=== PATIENT | female | born 1935 | race Caucasian/White ===

== ENCOUNTER 2017-02-11 03:33 | Inpatient (IN) | payer MEDICARE ==
[2017-02-11] MEDS ORDERED: Albuterol/Ipratropium NEB.SOL* Albuterol 2.5 MG/Ipratropium 0.5 MG 3 ML INH ONE (03:49)
[2017-02-11] MEDS ORDERED: methylPREDNISolone 125 MG* 2 ML VIAL IV ONE (03:49)
[2017-02-11 04:23] LABS: ABS Basophils 0.1 10^3/ul (0-0.2); ABS Eosinophils 0 10^3/ul (0-0.6); ABS Lymphocytes 1.6 10^3/ul (1.0-4.8); ABS Monocytes 1.1 10^3/ul (0-0.8); ABS Neutrophils 15.1 10^3/ul (1.5-7.7); ABS Nucleated RBC 0 10^3/ul; Eosinophil % 0.1 % (0-6); Hematocrit 35 % (35-47); Hemoglobin 11.9 g/dl (12.0-16.0); Lymphocyte % 8.8 % (25-47); Mean Corpuscular HGB Conc 34 g/dl (31-36); Mean Corpuscular Hemoglobin 30 pg (27-31); Mean Corpuscular Volume 88 fL (80-97); Mean Platelet Volume 7 um3 (7.4-10.4); Nucleated Red Blood Cells % 0; Platelet Count 453 10^3/ul (150-450); Red Blood Count 3.99 10^6/ul (4.0-5.4); Red Cell Distribution Width 13 % (10.5-15); White Blood Count 17.9 10^3/ul (3.5-10.8)
[2017-02-11 04:32] LABS: INR 0.81 (0.77-1.02)
[2017-02-11 04:41] LABS: EGFR Non-African American 70.7 (>60)
[2017-02-11] MEDS ORDERED: Ondansetron INJ* 2 MG/ML VIAL IV ONE (05:02)
[2017-02-11] MEDS ORDERED: Ondansetron INJ* 2 MG/ML VIAL ONE (05:04)
[2017-02-11] MEDS ORDERED: Iohexol 300* (CONTRAST) 10 ML SDV IV ONE (05:48)
[2017-02-11 06:25] LABS: Urine Appearance Clear; Urine Blood Negative (Negative); Urine Color Straw; Urine Ketones Negative (Negative); Urine Protein Negative (Negative); Urine Specific Gravity 1.008 (1.010-1.030); Urine Urobilinogen Negative (Negative)
--- NOTE | 2017-02-11 06:52 | ED ---
Jayna Navarro Emily, scribed for Pankaj Andino on 02/11/17 at 0351 . Dizziness - HPI Summary HPI Summary: This patient is an 81 year old F BIBA to [facility] accompanied by with a chief complaint of dizziness that occurred earlier today. Pt was in the kitchen when she began to feel dizzy and collapsed. The patient rates the pain 0/10 in severity. Symptoms aggravated by nothing. Symptoms alleviated by nothing. Patient reports skin SOB, diaphoresis, abd pain, nausea, and chills. Patient denies CP. - History Of Current Complaint Chief Complaint: EDDizziness Stated Complaint: SYNCOPE Time Seen by Provider: 02/11/17 03:37 Hx Obtained From: Patient Onset/Duration: Suddenly Severity Initially: Mild Severity Currently: Mild Aggravating Factor(s): Nothing Alleviating Factor(s): Nothing Associated Signs And Symptoms: Positive: Other: - Positive skin diaphoresis, abd pain, nausea, and chills. Negative SOB and CP - Allergies/Home Medications Allergies/Adverse Reactions: Allergies Allergy/AdvReac Type Severity Reaction Status Date / Time Amoxicillin Allergy Unknown Verified 09/30/16 11:30 Reaction Details NSAIDs Allergy Unknown Verified 09/25/16 12:06 Reaction Details Penicillins Allergy Unknown Verified 09/25/16 12:06 Reaction Details PMH/Surg Hx/FS Hx/Imm Hx Previously Healthy: No Cardiovascular History: Reports: Other Cardiovascular Problems/Disorders - LEFT VENTRICAL HYP Respiratory History: Reports: Hx Chronic Obstructive Pulmonary Disease (COPD) Musculoskeletal History: Reports: Hx Osteoporosis - Surgical History Surgery Procedure, Year, and Place: BOTH HIPS REPLACED- FOREARM DONE Infectious Disease History: No Infectious Disease History: Denies: Traveled Outside the [place] in Last 30 Days - Family History Known Family History: Positive: Other - Prostate CA - Social History Occupation: Retired Lives: With Family Alcohol Use: None Hx Substance Use: No Hx Tobacco Use: No Review of Systems Positive: Chills, Skin Diaphoresis Negative: Chest Pain Positive: Shortness Of Breath Positive: Abdominal Pain, Nausea Neurological: Other - Positive dizziness All Other Systems Reviewed And Are Negative: Yes Physical Exam Triage Information Reviewed: Yes Vital Signs On Initial Exam: Initial Vitals Temp Pulse Resp BP Pulse Ox 98.6 F 92 18 135/70 95 02/11/17 03:36 02/11/17 03:36 02/11/17 03:36 02/11/17 03:36 02/11/17 03:36 Vital Signs Reviewed: Yes Appearance: Positive: Well-Appearing, No Pain Distress Skin: Positive: Warm, Skin Color Reflects Adequate Perfusion, Dry Head/Face: Positive: Normal Head/Face Inspection Eyes: Positive: EOMI, JT ENT: Positive: Normal ENT inspection Neck: Positive: Supple, Nontender Respiratory/Lung Sounds: Positive: Breath Sounds Present, Wheezes - Bilateral Cardiovascular: Positive: RRR, Pulses are Symmetrical in both Upper and Lower Extremities Abdomen Description: Positive: Soft, Other: - Tenderness in the epigastric region Bowel Sounds: Positive: Present Musculoskeletal: Positive: Normal, Strength/ROM Intact Neurological: Positive: Normal, Sensory/Motor Intact, Alert, Oriented to Person Place, Time Psychiatric: Positive: Affect/Mood Appropriate Diagnostics - Vital Signs Vital Signs Temp Pulse Resp BP Pulse Ox 02/11/17 03:36 98.6 F 92 18 135/70 95 - Laboratory Result Diagrams: 02/11/17 03:45 02/11/17 03:45 Lab Statement: Any lab studies that have been ordered have been reviewed, and results considered in the medical decision making process. - Radiology CXR Radiology Interpretation Completed By: ED Physician - CXR reveals no acute disease. - EKG 0446 Cardiac Rate: Tachycardia EKG Rhythm: Sinus Rhythm - 110 BPM EKG Comparison: No Significant Change Dizzy Course/Dx - Course Assessment/Plan: This patient is an 81 year old F BIBA to [facility] accompanied by with a chief complaint of dizziness that occurred earlier today. Pt was in the kitchen when she began to feel dizzy and collapsed. Patient reports SOB, skin diaphoresis, abd pain, nausea, and chills. Physical Exam Findings. Bilateral wheezes. Tenderness in epigastric. An EKG taken at 0446 reveals sinus tachycardia at 110 BPM. No acute changes. CXR reveals no acute disease. Bloodwork obtained. In the ED course the patient was given Duoneb, Omnipaque, Solu-MEDROL, and Zofran. Pt is signed-off to Dr. Rodriguez, pending dispo, awaiting follow up CT and ultrasound. - Diagnoses Provider Diagnoses: COPD exacerbation, Hypoxia, Abdominal pain Discharge - Discharge Plan Condition: Stable Disposition: OTHER Discharge Disposition Comment: Sign-off to Dr. Jennifer upon shift change Referrals: Anali Klein MD [Primary Care Provider] - The documentation as recorded by the Jayna benavides Emily accurately reflects the service I personally performed and the decisions made by me, Pankaj Andino.
[2017-02-11] MEDS ORDERED: Levofloxacin 500 MG IVPREMIX(* 500 MG/100 ML BAG IVPB ONE (07:04)
--- NOTE | 2017-02-11 08:11 | RAD ---
HISTORY: Shortness of breath COMPARISONS: February 04, 2017 VIEWS: 1: frontal portable view of the chest at 4:10 AM FINDINGS: LINES AND TUBES: None. CARDIOMEDIASTINAL SILHOUETTE: The cardiomediastinal silhouette is normal for portable technique. PLEURA: The costophrenic angles are sharp. No pleural abnormalities are noted. LUNG PARENCHYMA: There is hyperinflation. ABDOMEN: The upper abdomen is clear. There is no subphrenic gas. BONES AND SOFT TISSUES: Degenerative changes are noted along the shoulders. IMPRESSION: COPD. NO ACTIVE CARDIOPULMONARY DISEASE.
--- NOTE | 2017-02-11 08:22 | RAD ---
CLINICAL HISTORY: Abdominal pain COMPARISON: None TECHNIQUE: Multiple contiguous axial CT scans were obtained of the abdomen and pelvis after the administration of intravenous contrast. Coronal and sagittal multiplanar reformations are submitted for review. Oral contrast was administered. Delayed images were obtained through the abdomen and pelvis. FINDINGS: LUNG BASES: There is dependent atelectasis in the lung bases bilaterally. LIVER: There are multiple low-attenuation hepatic parenchymal lesions. The largest measure simple fluid in attenuation consistent with simple cysts, measuring up to 0.8 cm in size. The others are too small to definitively characterize. The liver is mildly enlarged measuring 19.5 cm in long axis. BILE DUCTS: There is mild intrahepatic biliary dilatation. There is ectasia of the common duct measuring 1 cm in caliber extending to the level of the ampulla GALLBLADDER: The gallbladder is normal, without pericholecystic inflammatory change. PANCREAS: The pancreas is normal, without mass or ductal dilatation. SPLEEN: Normal in size and appearance. UPPER GI TRACT: Evaluation of the gastrointestinal tract is limited by incomplete gastric distention. The upper GI tract is unremarkable. SMALL BOWEL AND MESENTERY: The small bowel is normal in contour, course, and caliber. There is no obstruction or dilatation. COLON: The colon is normal in contour, course, caliber. There is no pericolonic inflammatory change. ADRENALS: Normal bilaterally. KIDNEYS: The kidneys are normal in shape, size, contour, and axis. There is no hydronephrosis or nephrolithiasis. BLADDER: Evaluation of the distal ureters and bladder is limited by streak artifact from bilateral hip prostheses. PELVIC ORGANS: Evaluation the pelvic organs is limited by streak artifact from bilateral hip prostheses. Calcified uterine fibroids are identified. AORTA: There is calcific atherosclerotic disease of the abdominal aorta and its branches, without aneurysmal dilatation IVC: Unremarkable LYMPH NODES: There is no lymphadenopathy by size criteria. ABDOMINAL WALL: There is an inferior lumbar triangle hernia on the left containing sidewall of large bowel without obstruction. BONES AND SOFT TISSUES: There is a scoliotic curvature of the spine. Degenerative changes are noted. The patient is status post bilateral hip arthroplasty. OTHER: None IMPRESSION: 1. MILD BILIARY DILATATION. 2. ATHEROSCLEROSIS. 3. 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 4. EVALUATION OF THE PELVIC ORGANS IS LIMITED BY STREAK ARTIFACT FROM BILATERAL HIP PROSTHESES.
[2017-02-11] MEDS ORDERED: Levalbuterol HFA INHALER* 1 PUFF MDI INH PRN (12:25)
--- NOTE | 2017-02-11 12:56 | RAD ---
HISTORY: High d-dimer, shortness of breath COMPARISON: Chest x-ray dated February 11, 2017 TECHNIQUE: Pulmonary ventilation/perfusion scintigraphy was performed with dynamic cine images and multiple planar images. DOSE: Ventilation: Xenon-133 7.3 millicuries, administered at 12:10 PM on February 11, 2017 Perfusion: Technetium 99m microaggregated albumin 6.11 millicuries, administered at 12:10 PM February 11, 2017 FINDINGS: Ventilation: There is homogeneous ventilation. Perfusion: There are no perfusion defects. IMPRESSION: NO PULMONARY PERFUSION DEFECTS. NORMAL VQ SCAN. CPT II Codes: 1014B0I
[2017-02-11] MEDS ORDERED: Spiriva Inhaler DEVICE* 1 EACH DEVICE ONE (13:00)
[2017-02-11] MEDS ORDERED: Levofloxacin 500 MG IVPREMIX(* 500 MG/100 ML BAG IVPB SCH (14:00)
[2017-02-11] MEDS: Heparin VIAL(*) 5000 UNITS/ML VIAL (FIVE THOUSAND) SUBCUT SCH ×2 (14:15→20:40)
[2017-02-11] MEDS: Diltiazem CD CAP* 120 MG PO SCH (14:15)
[2017-02-11] MEDS: Losartan TAB* 25 MG PO SCH (14:15)
[2017-02-11] MEDS: Tiotropium CAP.INH* CAP.INH/18 MCG (USE ORDER SET !) INH SCH (15:56)
--- NOTE | 2017-02-11 16:28 | ECHO ---
Patient: SCOTT DAVIS [facility] Rec#: [id number] : 1935 Date: 02/11/2017 Age: 81y Height: 152.4 cm / 60.0 in Weight: 47.63 kg / 105.0 lbs Sex: F Admit Date#: 02/11/2017 Referring: Anali Klein MD Reading: Mc Carreon MD Pipe Organ Mechanic: Vivienne Saldana [facility] Transthoracic Echocardiogram Findings History: COPD,PAF,HTN. Technical Comments: The study is technically difficult. Left Ventricle: The left ventricular chamber size is normal. Global left ventricular wall motion and contractility are within normal limits. There is normal left ventricular systolic function. The estimated ejection fraction is 50-55%. Abnormal left ventricular diastolic filling is observed, consistent with impaired relaxation. The lack of left atrial enlargement suggests this finding may not be of clinical significance. Left Atrium: The left atrial chamber size is normal. Right Ventricle: Moderator Band present. The right ventricular cavity size is normal. The right ventricular global systolic function is normal. Right Atrium: The right atrial cavity size is normal. Aortic Valve: The aortic valve is trileaflet. The aortic valve leaflets are mildly thickened. There is aortic annular calcification. There is mild aortic regurgitation. There is mild aortic stenosis. The highest aortic valve velocity was obtained with the standard probe from the A5C view. Mitral Valve: The mitral valve leaflets are moderately thickened. There is mild to moderate mitral regurgitation. There is no evidence of mitral stenosis. Tricuspid Valve: The tricuspid valve leaflets are mildly thickened. There is mild to moderate tricuspid regurgitation. There is evidence of mild pulmonary hypertension. There is no tricuspid stenosis. Pulmonic Valve: The pulmonic valve appears normal. There is no evidence of pulmonic regurgitation. There is no pulmonic stenosis. Pericardium: The pericardium appears normal. Aorta: The ascending aorta is not well visualized. There is no dilatation of the aortic arch. There is no dilation of the aortic root. Pulmonary Artery: The main pulmonary artery appears normal. Venous: The inferior vena cava is dilated. There is an approximate 50% respiratory change in the inferior vena cava dimension. Conclusions The study is technically difficult. Off axis images are noted making interpretation suboptimal. There is normal left ventricular systolic function. Visually estimated LVEF is 50- 55 %. There is aortic annular calcification. There is mild aortic regurgitation. There is mild aortic stenosis. There is mild to moderate mitral regurgitation. There is mild to moderate tricuspid regurgitation. There is evidence of mild pulmonary hypertension. Compared to report of study from 05/04/2014 there is now mild aortic stenosis. Overall LV systolic function is slightly less (was reported as 55-60%). Measurements Name Value Normal Range RVIDd (AP) 2D 2.8 cm (0.9 - 2.6) RVDdMajor (2D) 3.1 cm (2.2 - 4.4) RAd ISD 4CH 3.9 cm (3.4 - 4.9) RA (A4C)W 3.3 cm (2.9 - 4.6) IVSd (2D) 0.7 cm (0.6 - 1) LVPWd (2D) 0.9 cm (0.6 - 1) LVIDd (2D) 4 cm (3.6 - 5.4) LVIDs (2D) 2.8 cm - LV FS (2D) 28 % (25 - 45) EF Teichholz (2D) 3 % - Aortic Annulus 1.7 cm (1.4 - 2.6) Ao root diameter (2D) 3.1 cm (2.1 - 3.5) Aortic arch 2.3 cm (1.8 - 3.4) Descending Ao 0.6 cm - LA dimension (AP) 2D 3.6 cm (2.3 - 3.8) LAd ISD 4CH 4.8 cm (2.9 - 5.3) LA ISD 4CH W 3.6 cm (2.5 - 4.5) Name Value Normal Range LA ESV SP 4CH (A/L) 34 ml - LA ESV SP 2CH (A/L) 66 ml - LA ESV BP (A/L) 48 ml - LA ESV BP (A/L) index 33.8 ml/m2 - LA ESV SP 4CH (MOD) 31 ml - LA ESV SP 2CH (MOD) 60 ml - Name Value Normal Range MV E-wave Vmax 0.7 m/sec - MV deceleration time 164 msec - MV A-wave Vmax 1.1 m/sec - MV E:A ratio 0.63 ratio - LV septal e' Vmax 0.06 m/sec - LV lateral e' Vmax 0.09 m/sec - LV E:e' septal ratio 11.67 ratio - LV E:e' lateral ratio 7.78 ratio - Name Value Normal Range AV Vmax 2.3 m/sec - AV VTI 41.3 cm - AV peak gradient 20.9 mmHg - AV mean gradient 10.89 mmHg - LVOT diameter 2.2 cm - LVOT Vmax 1.2 m/sec - LVOT VTI 21 cm - LVOT peak gradient 6.25 mmHg - LVOT mean gradient 2.68 mmHg - YANE (continuity Vmax) 2 cm2 - YANE (continuity VTI) 1.9 cm2 - AR PHT 294 msec - AR peak gradient 31.75 mmHg - Name Value Normal Range MR Vmax 4.53 m/sec - MR VTI 92.78 cm - Name Value Normal Range TR Vmax 2.7 m/sec - TR peak gradient 29 mmHg - RAP 8 mmHg - RVSP 37 mmHg - IVC diameter 2.1 cm - Name Value Normal Range PV Vmax 1.3 m/sec - PV peak gradient 6.29 mmHg -
[2017-02-11] MEDS: Omeprazole CAP* 20 MG PO SCH (17:01)
--- NOTE | 2017-02-11 19:04 | RAD ---
INDICATION: Pain and swelling. COMPARISON: None TECHNIQUE: Duplex interrogation of the Lowerextremity was performed. FINDINGS: Deep veins: The common femoral, great saphenous, profunda femoris, proximal, mid, and distal deep femoral, popliteal, posterior tibial, and peroneal veins are patent. There is normal compressibility, augmentation, and phasic flow. Superficial veins: There are no findings of superficial thrombophlebitis. Popliteal fossa:There is no evidence of a popliteal cyst. Soft tissues:There are no soft tissue abnormalities. IMPRESSION: Normal examination. No evidence of deep venous thrombosis
[2017-02-11] MEDS: amLODIPine TAB* 5 MG PO SCH (20:38)
[2017-02-11] MEDS: Famotidine TAB* 20 MG PO SCH (20:39)
[2017-02-12] MEDS: Heparin VIAL(*) 5000 UNITS/ML VIAL (FIVE THOUSAND) SUBCUT SCH ×3 (04:23→21:26)
[2017-02-12 06:27] LABS: ABS Basophils 0 10^3/ul (0-0.2); ABS Eosinophils 0 10^3/ul (0-0.6); ABS Lymphocytes 1.3 10^3/ul (1.0-4.8); ABS Neutrophils 20.4 10^3/ul (1.5-7.7); ABS Nucleated RBC 0 10^3/ul; Eosinophil % 0.1 % (0-6); Hematocrit 34 % (35-47); Hemoglobin 11.6 g/dl (12.0-16.0); Lymphocyte % 5.4 % (25-47); Mean Corpuscular HGB Conc 34 g/dl (31-36); Mean Corpuscular Hemoglobin 30 pg (27-31); Mean Corpuscular Volume 89 fL (80-97); Mean Platelet Volume 7 um3 (7.4-10.4); Nucleated Red Blood Cells % 0; Platelet Count 391 10^3/ul (150-450); Red Blood Count 3.81 10^6/ul (4.0-5.4); Red Cell Distribution Width 13 % (10.5-15); White Blood Count 23.8 10^3/ul (3.5-10.8)
[2017-02-12 06:48] LABS: EGFR Non-African American 82.8 (>60)
[2017-02-12] MEDS ORDERED: Levofloxacin 500 MG IVPREMIX(* 500 MG/100 ML BAG IVPB SCH (07:30)
[2017-02-12] MEDS ORDERED: Benzonatate CAP* 100 MG PO PRN (07:40)
[2017-02-12] MEDS: Omeprazole CAP* 20 MG PO SCH ×2 (07:41→16:08)
[2017-02-12] MEDS: Diltiazem CD CAP* 120 MG PO SCH (08:50)
[2017-02-12] MEDS: Losartan TAB* 25 MG PO SCH (08:50)
[2017-02-12] MEDS: predniSONE TAB* 20 MG PO SCH ×2 (08:50→21:22)
[2017-02-12] MEDS: Famotidine TAB* 20 MG PO SCH ×2 (08:50→21:22)
[2017-02-12] MEDS: Benzonatate CAP* 100 MG PO PRN ×2 (08:51→22:08)
[2017-02-12] MEDS: Loperamide CAP* 2 MG PO PRN (08:51)
[2017-02-12] MEDS: Tiotropium CAP.INH* CAP.INH/18 MCG (USE ORDER SET !) INH SCH (08:55)
[2017-02-12] MEDS: BREO ELLIPTA INH SCH (10:48)
[2017-02-12] MEDS ORDERED: Gentamicin ADULT per pharmacy 1 NOTE MISC FOLLOW UP PRN (11:14)
[2017-02-12] MEDS ORDERED: Aztreonam (*) 2 GM in NS 0.9% 50 ML* 50 ML IVPB SCH (12:00)
[2017-02-12] MEDS ORDERED: Levofloxacin 250 MG IVPREMX(*) 250 MG/50 ML BAG IVPB ONE (13:00)
[2017-02-12] MEDS ORDERED: Gentamicin IVPREMIX 100 MG/100 ML BAG IV ONE (14:00)
[2017-02-12] MEDS: AZTREONAM IVPB SCH ×2 (15:21→21:31)
[2017-02-12] MEDS: D5W IVPB SCH ×2 (15:21→21:31)
--- NOTE | 2017-02-12 16:29 | HP ---
HISTORY AND PHYSICAL: DATE OF ADMISSION: 02/11/17 HISTORY OF PRESENT ILLNESS: Josette Rangel is an 81-year-old woman admitted with near syncope, weakness, cough. The patient has had a cough recently. She has not been feeling well. She had seen the children's service worker who had switched her from Advair to Breo Ellipta. She had started a cough on 02/01/17. I spoke to her on Wednesday02/05/17. The previous Wednesday and Wednesday, she had felt fatigued. She had started prednisone on 02/03/17. She had quite a significant cough and guaifenesin with codeine was not helping. The Breo Ellipta had been started on 01/22/17. Her insurance was also asking her to change from Spiriva to Breo Incruse. This had not been started yet, however. I had suggested when I talked to her on 02/05/17 that she use her levalbuterol when she was coughing. I gave her more of the guaifenesin with codeine. She was on tapering doses of prednisone. Last night she went to bed around 10:15. She had indigestion. She woke up at 1:30 a.m. and had pain in her right shoulder which she has had in the past. She went to put a pad in the microwave which she was going to put on her shoulder, when she felt dizzy. She tried to make it to the chair, but did not make it and went down to the ground. She did not injure herself. She did not lose consciousness. She was quite sweaty. She was able to get herself back to bed. She was worried that she was having an ME because she had similar symptoms to what her had had when he had an ME. She felt chills, shivery, shaky. He took her vital signs. Her blood pressure was 160/80, pulse 93. When repeated, her blood pressure came down to 130. Her breathing was shallow and rapid. He called 911. She came to the emergency room. She was started on Levaquin. It was felt that she might have pneumonia, although this was not confirmed on the reading of the chest x-ray by the radiologist. She is being admitted at this time. PAST MEDICAL HISTORY: Otherwise significant for the following medical problems; 1. Asthma/COPD. 2. Gastroesophageal reflux disease. 3. Allergic rhinitis. 4. Essential hypertension. 5. Osteoporosis. 6. Status post knee replacement. 7. History of gastroparesis. 8. Osteoarthritis. 9. History of atrial fibrillation in 2003 and 2004. 10. Hyperlipidemia. 11. History of endometrial hyperplasia. 12. History of recurrent urinary tract infections. 13. History of uterine fibroids. PAST SURGICAL HISTORY: Prior surgeries include; 1. Bilateral knee replacements. 2. Lumpectomy for breast cancer in 1985. 3. Status post bilateral hip replacements. 4. Appendectomy. 5. History of removal of cervical polyp. CURRENT MEDICATIONS: 1. Codeine 10 mg-guaifenesin 100 mg/5 mL, 2 teaspoons every 4 hours as needed. 2. Spiriva 1 inhalation daily. 3. Xopenex 2 puffs every 4 hours as needed. 4. Lunesta 3 mg, 1 at h.s. p.r.n. sleep. 5. Irbesartan 150 mg daily. 6. QVAR 80 mg twice a day as needed. 7. Omeprazole 20 mg twice a day. 8. Amlodipine 2.5 mg daily. 9. Breo Ellipta 200 mcg-25 mcg/dose, 1 inhalation every day. 10. Vitamin C 1000 mg daily. 11. Ranitidine 150 mg twice a day. 12. PreserVision 2 capsules daily. 13. Magnesium 200 mg 2 every day. 14. Loratadine 10 mg every day. 15. Cyanocobalamin (vitamin B12) 100 mcg daily. 16. Multivitamin 1 every other day. 17. O-otopjps-jxfvqcn B12 1 every day. 18. Diltiazem 120 mg 1 every day. 19. [place] 350-400, 2 capsules every day. 20. Probiotic 1 capsule every day. 21. Cholecalciferol 2000 units (vitamin D3) 1 tablet every day. ALLERGIES: 1. ASPIRIN caused facial swelling. 2. ALTACE. 3. AMOXICILLIN caused rash. 4. ADVIL caused facial swelling. HABITS: Tobacco, none. She is a former smoker, she quit 50 years ago (1966). She had smoked for 15 years. EtOH, none. Caffeine, green tea 2 cups per day. FAMILY HISTORY: Positive for mother with COPD, at age 69. Father at 67 of prostate cancer. She had no siblings. She has 4 children. SOCIAL/PERSONAL HISTORY: The patient is . She lives in an apartment with her . 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 She has 2 adult children and grandchildren in the area. REVIEW OF SYSTEMS: General: She has been tired. Her appetite is not as good as usual. She has not been sleeping well. She attributes this to coughing and prednisone. She denied fever. HEENT: Her left ear has felt plugged. Blowing clear mucus out of the nose. Her throat has not been sore. Nodes: no adenopathy. Heme: Negative. Breasts: See above. Endocrine: Negative. Respiratory: See above. Her sputum is slightly thick, slightly yellow. She did notice a slight wheeze yesterday. She has been feeling more short of breath , but denies chest pain. Cardiovascular: See above. GI: She has been nauseated and has taken some Zofran for that. Bowel movements have been normal. : Negative. Musculoskeletal: See above. Neuro: See above. Psychiatric: Negative. PHYSICAL EXAMINATION VITAL SIGNS: Blood pressure 135/70, pulse 92, respirations 18, temperature 98.6 , O2 sat 95% on 3 L nasal cannula O2. The patient seen in the presence of her and daughter Flori. HEENT: Atraumatic, normocephalic. Full EOMs. TMs unremarkable. Mouth: Pharynx shows mild petechial lesion, right soft palate. Pharynx otherwise unremarkable. CHEST: Shows diminished breath sounds. No adventitial sounds. HEART: Normal S1, S2. No murmurs, gallops, or rubs. Pulses are full throughout. ABDOMEN: Soft and nontender. There are no masses or organomegaly. EXTREMITIES: Without cyanosis, clubbing, or erythema. NEUROLOGIC: She is alert, oriented. Cranial nerves are intact. Motor, no focal findings on exam. SKIN: Warm and dry. LABORATORY DATA: CBC: WBC 17.9, H and H 11.9/35, MCV 88, PLT 453,000. INR 0.81, PTT 24.8. D-dimer 533. ABGs; pH 7.48, pCO2 of 39, pO2 of 69. I believe this was on 3 L, not stated in the report. Chemistry: Sodium 128, potassium 3.6, chloride 92, CO2 of 28, BUN and creatinine 22/0.78, glucose 90, lactic acid 2, calcium 8.8. Rest of her comprehensive metabolic panel was within normal limits except for alkaline phosphatase 147, total protein 6.1. C- reactive protein is 5.2. Troponin 0.02. BNP 49. IMAGING: Chest x-ray shows no acute infiltrates. Abdomen and pelvis CT with IV contrast shows biliary dilatation, atherosclerosis, left inferior lumbar triangle hernia without obstruction. There was a cyst of the liver. EKG shows sinus tachycardia, LVH, mild ST and T-wave changes, nonspecific. IMPRESSION: The patient with near syncope in the setting of recent cough. She likely has exacerbation of chronic obstructive pulmonary disease, but pulmonary emboli need to be ruled out. Troponins will be trended to assess for possible CAD. She is to be a full code. This was discussed with the patient and her family. She is to have DVT prophylaxis with heparin. Continue her usual medications. I will continue her on Levaquin which was started in the ER for possible infection. I will order a procalcitonin and CRP and follow these. She will be placed on telemetry. I am going to get a V/Q lung scan in view of the fact that she had contrast already for her CT and it would be safer for her kidneys to do this. If it is indeterminate, I discussed with the radiologist of proceeding then with a CTA of the chest. [id number]/[facility] #: [id number] CHARLIE
[2017-02-12] MEDS: Lactobacillus Acidophilu (GG)* 1 CAP CAP PO SCH (21:22)
[2017-02-12] MEDS: amLODIPine TAB* 5 MG PO SCH (21:22)
[2017-02-12] MEDS: Multivitamins/Minera Areds(NF) 1 CAP CAP PO SCH (21:24)
[2017-02-13] MEDS: Gentamicin IVPREMIX 80 MG/80 ML BAG IV SCH ×2 (01:55→14:21)
[2017-02-13 05:51] LABS: Hematocrit 34 % (35-47); Hemoglobin 11.5 g/dl (12.0-16.0); Mean Corpuscular HGB Conc 34 g/dl (31-36); Mean Corpuscular Hemoglobin 30 pg (27-31); Mean Corpuscular Volume 89 fL (80-97); Mean Platelet Volume 7 um3 (7.4-10.4); Platelet Count 424 10^3/ul (150-450); Red Cell Distribution Width 13 % (10.5-15); White Blood Count 17.6 10^3/ul (3.5-10.8)
[2017-02-13 06:06] LABS: EGFR Non-African American 80.1 (>60)
[2017-02-13] MEDS: D5W IVPB SCH ×3 (06:06→21:27)
[2017-02-13] MEDS: AZTREONAM IVPB SCH ×3 (06:06→21:27)
[2017-02-13] MEDS: Heparin VIAL(*) 5000 UNITS/ML VIAL (FIVE THOUSAND) SUBCUT SCH ×3 (06:10→21:04)
[2017-02-13] MEDS: Omeprazole CAP* 20 MG PO SCH ×2 (06:15→16:02)
[2017-02-13] MEDS: Diltiazem CD CAP* 120 MG PO SCH (08:50)
[2017-02-13] MEDS: predniSONE TAB* 20 MG PO SCH ×2 (08:50→21:01)
[2017-02-13] MEDS: Losartan TAB* 25 MG PO SCH (08:50)
[2017-02-13] MEDS: Famotidine TAB* 20 MG PO SCH ×2 (08:50→21:02)
[2017-02-13] MEDS: Multivitamins/Minera Areds(NF) 1 CAP CAP PO SCH ×2 (08:51→19:49)
[2017-02-13] MEDS: Tiotropium CAP.INH* CAP.INH/18 MCG (USE ORDER SET !) INH SCH (10:52)
[2017-02-13] MEDS: BREO ELLIPTA INH SCH (10:52)
[2017-02-13] MEDS ORDERED: Gentamicin Trough Level 1 NOTE MISC FOLLOW UP SCH (13:30)
[2017-02-13] MEDS ORDERED: Gentamicin PEAK LEVEL* 1 NOTE MISC FOLLOW UP SCH (15:00)
[2017-02-13] MEDS: amLODIPine TAB* 5 MG PO SCH (21:01)
[2017-02-13] MEDS: Lactobacillus Acidophilu (GG)* 1 CAP CAP PO SCH (21:01)
[2017-02-14] MEDS: Benzonatate CAP* 100 MG PO PRN ×3 (00:49→20:53)
[2017-02-14] MEDS: AZTREONAM IVPB SCH ×3 (05:37→20:55)
[2017-02-14] MEDS: Heparin VIAL(*) 5000 UNITS/ML VIAL (FIVE THOUSAND) SUBCUT SCH ×3 (05:37→20:54)
[2017-02-14] MEDS: D5W IVPB SCH ×3 (05:37→20:55)
[2017-02-14 05:54] LABS: ABS Basophils 0 10^3/ul (0-0.2); ABS Eosinophils 0 10^3/ul (0-0.6); ABS Monocytes 0.7 10^3/ul (0-0.8); ABS Neutrophils 14.9 10^3/ul (1.5-7.7); ABS Nucleated RBC 0 10^3/ul; Eosinophil % 0.1 % (0-6); Hematocrit 36 % (35-47); Hemoglobin 11.8 g/dl (12.0-16.0); Lymphocyte % 5.8 % (25-47); Mean Corpuscular HGB Conc 33 g/dl (31-36); Mean Corpuscular Hemoglobin 30 pg (27-31); Mean Corpuscular Volume 91 fL (80-97); Mean Platelet Volume 7 um3 (7.4-10.4); Nucleated Red Blood Cells % 0; Platelet Count 456 10^3/ul (150-450); Red Blood Count 3.94 10^6/ul (4.0-5.4); Red Cell Distribution Width 14 % (10.5-15); White Blood Count 16.6 10^3/ul (3.5-10.8)
[2017-02-14] MEDS ORDERED: Gentamicin RANDOM Level 1 NOTE MISC FOLLOW UP ONE (06:00)
[2017-02-14] MEDS: Multivitamins/Minera Areds(NF) 1 CAP CAP PO SCH ×2 (07:21→21:03)
[2017-02-14] MEDS: Levofloxacin 750 MG IVPREMIX(* 750 MG/150 ML BAG IVPB SCH (07:44)
[2017-02-14] MEDS: Omeprazole CAP* 20 MG PO SCH ×2 (07:45→17:12)
[2017-02-14] MEDS: predniSONE TAB* 20 MG PO SCH ×2 (07:45→20:55)
[2017-02-14] MEDS: Famotidine TAB* 20 MG PO SCH ×2 (07:45→20:55)
[2017-02-14] MEDS: Diltiazem CD CAP* 120 MG PO SCH (07:45)
[2017-02-14] MEDS: Losartan TAB* 25 MG PO SCH (07:46)
[2017-02-14] MEDS: BREO ELLIPTA INH SCH (08:08)
[2017-02-14] MEDS: Tiotropium CAP.INH* CAP.INH/18 MCG (USE ORDER SET !) INH SCH (10:45)
--- NOTE | 2017-02-14 12:41 | RAD ---
Indication: Respiratory infection. 2 views of the chest demonstrate no mediastinal shift. Heart is of normal size and configuration. Lung milan are clear. IMPRESSION: No active cardiopulmonary disease is noted.
[2017-02-14] MEDS: Gentamicin IVPREMIX 80 MG/80 ML BAG IV SCH (13:33)
[2017-02-14] MEDS: amLODIPine TAB* 5 MG PO SCH (20:54)
[2017-02-14] MEDS: Lactobacillus Acidophilu (GG)* 1 CAP CAP PO SCH (20:54)
[2017-02-15] MEDS: AZTREONAM IVPB SCH ×3 (05:03→21:29)
[2017-02-15] MEDS: D5W IVPB SCH ×3 (05:03→21:29)
[2017-02-15] MEDS: Heparin VIAL(*) 5000 UNITS/ML VIAL (FIVE THOUSAND) SUBCUT SCH ×3 (05:03→21:31)
[2017-02-15] MEDS: Losartan TAB* 25 MG PO SCH (07:54)
[2017-02-15] MEDS: Omeprazole CAP* 20 MG PO SCH ×2 (07:54→16:24)
[2017-02-15] MEDS: Famotidine TAB* 20 MG PO SCH ×2 (07:55→21:30)
[2017-02-15] MEDS: Tiotropium CAP.INH* CAP.INH/18 MCG (USE ORDER SET !) INH SCH (07:55)
[2017-02-15] MEDS: BREO ELLIPTA INH SCH (07:55)
[2017-02-15] MEDS: Multivitamins/Minera Areds(NF) 1 CAP CAP PO SCH ×2 (07:55→21:39)
[2017-02-15] MEDS: Benzonatate CAP* 100 MG PO PRN ×3 (07:55→22:09)
[2017-02-15] MEDS: predniSONE TAB* 20 MG PO SCH (07:55)
[2017-02-15] MEDS: Diltiazem CD CAP* 120 MG PO SCH (07:56)
--- NOTE | 2017-02-15 10:17 | PN ---
Subjective - Subjective Reason for Note: Progress Note History: She was having an independent shower when I first came to see her, when I returned 10 mins later, she was able to walk independently from the bathroom to her chair. She was not using supplementary O2. She is feeling much better. Active Problems: Active Problems Acute exacerbation of COPD with asthma (Acute) J44.1, J45.901 Pneumonia (Acute) J18.9 Essential (primary) hypertension (Chronic) I10 GERD (gastroesophageal reflux disease) (Chronic) K21.9 History of atrial fibrillation (Chronic) Z86.79 History of diabetic gastroparesis (Chronic) Z86.39 Hyperlipidemia (Chronic) E78.5 Current Medications: Current Medications Amlodipine Besylate (Norvasc Tab*) 2.5 mg PO BEDTIME [facility] Last Admin: 02/14/17 20:54 Dose: 2.5 mg Benzonatate (Tessalon Cap*) 200 mg PO Q8H PRN PRN Reason: COUGHING Last Admin: 02/15/17 07:55 Dose: 200 mg Diltiazem HCl (Cardizem Cd Cap*) 120 mg PO DAILY [facility] Last Admin: 02/15/17 07:56 Dose: 120 mg Famotidine (Pepcid Tab*) 20 mg PO BID [facility] Last Admin: 02/15/17 07:55 Dose: 20 mg Heparin Sodium (Porcine) (Heparin Vial(*)) 5,000 units SUBCUT Q8H [facility] Last Admin: 02/15/17 05:03 Dose: 5,000 units Levofloxacin/Dextrose (Levaquin 750 Mg Ivpremix(*)) 750 mg in 150 mls @ 100 mls /hr IVPB Q48H [facility] Last Admin: 02/14/17 07:44 Dose: 100 mls/hr Aztreonam 2 gm/ Dextrose 50 mls @ 200 mls/hr IVPB Q8H [facility] Last Admin: 02/15/17 05:03 Dose: 200 mls/hr Gentamicin Sulfate/Sodium Chloride (Gentamicin Ivpremix) 80 mg in 80 mls @ 160 mls/hr IV Q24H [facility] Last Admin: 02/14/17 13:33 Dose: 160 mls/hr Lactobacillus Rhamnosus (Culturelle*) 1 cap PO BEDTIME [facility] Last Admin: 02/14/17 20:54 Dose: 1 cap Levalbuterol HCl (Xopenex Hfa Inhaler*) 2 puff INH Q4H PRN PRN Reason: SOB/WHEEZING Last Admin: 02/11/17 17:01 Dose: 2 puff Loperamide HCl (Imodium Cap*) 2 mg PO QID PRN PRN Reason: DIARRHEA Last Admin: 02/12/17 08:51 Dose: 2 mg Losartan Potassium (Cozaar Tab*) 50 mg PO DAILY [facility] Last Admin: 02/15/17 07:54 Dose: 50 mg Multivitamins/Minerals (Preservision Areds(Multivitamins/Mineral)(Nf)) 1 cap PO BID [facility] Last Admin: 02/15/17 07:55 Dose: Not Given Pto Non Formulary Med (Breo Ellipta 200/) 1 dose INH DAILY [facility] Last Admin: 02/15/17 07:55 Dose: 1 dose Omeprazole (Prilosec Cap*) 20 mg PO BID AC [facility] Last Admin: 02/15/17 07:54 Dose: 20 mg Pharmacy Consult (Gentamicin Adult Per Pharmacy) 1 note FOLLOW UP . PRN PRN Reason: PER PROTOCOL Pharmacy Profile Note (Gentamicin Trough Level) 1 note FOLLOW UP 1130 ONE Stop: 02/16/17 11:31 Prednisone (Deltasone Tab*) 20 mg PO BID [facility] Last Admin: 02/15/17 07:55 Dose: 20 mg Tiotropium Howard (Spiriva Cap.Inh*) 1 cap INH DAILY [facility] Last Admin: 02/15/17 07:55 Dose: 1 cap - Review of Systems Constitutional Symptoms: Yes: Fatigue, No: Fever Pulmonary: Positive: Cough, Sputum, COPD, Asthma Negative: Hemoptysis, Wheezing, Respiratory Distress, Shortness of Breath, Exercise Intolerance, Home Oxygen Cardiology: Positive: Shortness of Breath Negative: Chest Pain, Palpitations, Swelling of Ankles Gastroenterology: Negative: Abdominal Pain, Nausea, Vomiting Genital - Urinary: Positive: Normal Home Medications: Home Medications Medication Instructions Recorded Confirmed Type Diltiazem CD CAP* [Cardizem CD 120 mg PO DAILY 05/18/16 02/11/17 History CAP*] Irbesartan (NF) [Avapro (NF)] 150 mg PO DAILY 05/18/16 02/11/17 History Levalbuterol HFA INHALER* [Xopenex 2 puff INH QID PRN 05/18/16 02/11/17 History Hfa Inhaler*] Omeprazole CAP* [Prilosec CAP* 20 20 mg PO BID 05/18/16 02/11/17 History MG] Ranitidine TAB (NF) [Zantac TAB 150 mg PO BID 05/18/16 02/11/17 History (NF)] Tiotropium CAP.INH* [Spiriva 1 cap.inh INH DAILY 05/18/16 02/11/17 History CAP.INH*] amLODIPine TAB* [Norvasc TAB*] 2.5 mg PO QPM 05/18/16 02/11/17 History Cyanocobalamin TAB* [Vitamin B12 1,000 mcg PO DAILY 09/30/16 02/11/17 History TAB*] Cholecalciferol TAB* [Vitamin D 2,000 units PO DAILY 02/11/17 02/11/17 History TAB*] Fluticasone/Vilanterol MDI(NF) 1 puff INH DAILY 02/11/17 02/11/17 History [Breo Ellipta MDI (NF)] Magnesium Gluconate 400 mg PO DAILY 02/11/17 02/11/17 History Multiple Vitamins W/ Minerals 1 cap PO DAILY 02/11/17 02/11/17 History [Preservision Areds 2 + Mu] predniSONE TAB* [Deltasone TAB*] 5 mg PO DAILY 02/11/17 02/11/17 History Preservision Areds 2 + Mu 1 tab PO BID 02/12/17 02/12/17 History Allergies: Allergies Allergy/AdvReac Type Severity Reaction Status Date / Time Amoxicillin Allergy Unknown Verified 09/30/16 11:30 Reaction Details NSAIDs Allergy Unknown Verified 09/25/16 12:06 Reaction Details Penicillins Allergy Unknown Verified 09/25/16 12:06 Reaction Details Ramipril [From Altace] Allergy Unknown Verified 02/11/17 13:31 Reaction Details Objective - Vital Signs Vital Signs: Vital Signs 02/14/17 02/14/17 02/14/17 15:30 15:31 19:17 Temperature 97.4 F 97.2 F Pulse Rate 84 89 Respiratory 16 18 Rate Blood Pressure 146/71 143/68 (mmHg) O2 Sat by Pulse 97 96 97 Oximetry 02/14/17 02/14/17 02/15/17 20:31 23:36 03:35 Temperature 98.1 F 97.8 F Pulse Rate 72 68 Respiratory 18 16 16 Rate Blood Pressure 163/73 142/59 (mmHg) O2 Sat by Pulse 98 97 Oximetry - Intake and Output Intake and Output: Intake & Output 02/12/17 02/13/17 02/14/17 02/15/17 11:59 11:59 11:59 11:59 Intake Total 650 2201 1976 74 Output Total 0 0 Balance 650 2201 1976 74 Weight 104 lb Intake: IV Fluids 45 147 58 ABX - AZTREONAM 30 147 58 ABX - GENTAMYCIN 15 IVPB 366 50 286 ABX - AZTREONAM 158 50 55 ABX - GENTAMYCIN 58 76 ABX - LEVAQUIN 150 155 Oral 650 1790 1780 400 Output: Urine 0 0 Other: Estimated Void Medium Medium Large Large # Bowel Movements 1 0 0 Estimated Stool Amount Small # Voids 3 2 1 1 ADLs: Meal Record Start: 02/11/17 12: 03 Freq: DAILY@0900,1400,1800 Status: Active Protocol: Created 02/11/17 12:03 System (Rec: 02/11/17 12:03 System TELE-C07) Document 02/11/17 14:00 [id number] (Rec: 02/11/17 15:30 [id number] TELE-C01) Document 02/11/17 17:59 [id number] (Rec: 02/11/17 18:00 [id number] TELE-C05) Document 02/12/17 09:00 [id number] (Rec: 02/12/17 14:48 [id number] TELE-C05) Document 02/12/17 14:00 [id number] (Rec: 02/12/17 14:50 [id number] TELE-C05) Document 02/12/17 18:00 [id number] (Rec: 02/12/17 19:15 [id number] TELE-C01) Document 02/13/17 09:00 [id number] (Rec: 02/13/17 14:50 [id number] TELE-C03) Document 02/13/17 14:00 [id number] (Rec: 02/13/17 14:51 [id number] TELE-C03) Document 02/14/17 18:00 [id number] (Rec: 02/14/17 18:33 [id number] MED-C09) Intake and Output Start: 02/11/17 03: 42 Freq: Status: Active Protocol: Created 02/11/17 03:42 System (Rec: 02/11/17 03:42 System ED-C31) Intake and Output Start: 02/11/17 12: 03 Freq: DAILY@0600,1400,2200 Status: Active Protocol: Created 02/11/17 12:03 System (Rec: 02/11/17 12:03 System TELE-C07) Document 02/11/17 14:00 [id number] (Rec: 02/11/17 15:30 [id number] TELE-C01) Document 02/11/17 22:00 [id number] (Rec: 02/11/17 22:47 [id number] TELE-C01) Document 02/12/17 00:00 [id number] (Rec: 02/12/17 02:31 [id number] TELE-M04) Document 02/12/17 06:00 [id number] (Rec: 02/12/17 07:40 [id number] TELE-C11) Document 02/12/17 14:00 [id number] (Rec: 02/12/17 14:50 [id number] TELE-C05) Document 02/12/17 18:51 [id number] (Rec: 02/12/17 18:51 [id number] TELE-M01) Document 02/12/17 22:00 [id number] (Rec: 02/12/17 22:12 [id number] TELE-C01) Document 02/13/17 05:21 [id number] (Rec: 02/13/17 05:21 [id number] TELE-C35) Document 02/13/17 06:00 [id number] (Rec: 02/13/17 06:47 [id number] TELE-C03) Document 02/13/17 14:00 [id number] (Rec: 02/13/17 14:51 [id number] TELE-C03) Document 02/13/17 20:09 [id number] (Rec: 02/13/17 20:09 [id number] MED-C11) Document 02/14/17 01:49 [id number] (Rec: 02/14/17 01:49 [id number] MED-C42) Document 02/14/17 04:48 [id number] (Rec: 02/14/17 04:49 [id number] MED-C42) Document 02/15/17 04:09 [id number] (Rec: 02/15/17 04:09 [id number] MED-C01) - Physical Exam General Physical Exam Comment: She has copious clear sputum. She is in no distresss and is able to perform her ADLs General: No Cyanosis, No Anemia, No Jaundice, No Clubbing Skin: Normal: Rash Lungs and Chest: Yes: Chest Expansion Full, Chest Expansion Symetrica, Vessicular Breath Sounds. No: Percussion Note Resonant - hyper-resonant, Crackles, Wheezes, Respiratory Distress, Use of Accessory Muscles Heart Rate and Rhythm: Regular JVP: Not Elevated Additional Cardiovascular: Yes: Normal Heart Sounds. No: Heart Murmur, Pedal Edema Abdominal Exam: Yes: Soft, Bowel Sounds Present. No: Distention, Abdominal Tenderness Assessment - Problem List Assessment: Patient Problems Acute exacerbation of COPD with asthma (Acute) Pneumonia (Acute) Essential (primary) hypertension (Chronic) GERD (gastroesophageal reflux disease) (Chronic) History of atrial fibrillation (Chronic) History of diabetic gastroparesis (Chronic) Hyperlipidemia (Chronic) Plan: She is recovering from a likely occult pneumonia ontop of an exacerbation of COPD. Her CXR yesterday was clear. Her WBC remains high because of the prednisone - I will taper today. I think she should complete her antibacterials in the hospital as she is at high risk of re-admission. I answered her questions.
[2017-02-15] MEDS: Loperamide CAP* 2 MG PO PRN (11:38)
[2017-02-15] MEDS: Gentamicin IVPREMIX 80 MG/80 ML BAG IV SCH (11:38)
[2017-02-15] MEDS: amLODIPine TAB* 5 MG PO SCH (21:30)
[2017-02-15] MEDS: Lactobacillus Acidophilu (GG)* 1 CAP CAP PO SCH (21:30)
[2017-02-16] MEDS: D5W IVPB SCH (04:35)
[2017-02-16] MEDS: AZTREONAM IVPB SCH (04:35)
[2017-02-16] MEDS: Heparin VIAL(*) 5000 UNITS/ML VIAL (FIVE THOUSAND) SUBCUT SCH (04:56)
[2017-02-16] MEDS: Levofloxacin 750 MG IVPREMIX(* 750 MG/150 ML BAG IVPB SCH (07:21)
[2017-02-16 07:24] LABS: ABS Basophils 0.1 10^3/ul (0-0.2); ABS Eosinophils 0.1 10^3/ul (0-0.6); ABS Lymphocytes 2.2 10^3/ul (1.0-4.8); ABS Nucleated RBC 0 10^3/ul; Eosinophil % 0.4 % (0-6); Hematocrit 37 % (35-47); Hemoglobin 12.5 g/dl (12.0-16.0); Mean Corpuscular HGB Conc 34 g/dl (31-36); Mean Corpuscular Hemoglobin 30 pg (27-31); Mean Corpuscular Volume 90 fL (80-97); Mean Platelet Volume 6 um3 (7.4-10.4); Nucleated Red Blood Cells % 0; Platelet Count 438 10^3/ul (150-450); Red Blood Count 4.14 10^6/ul (4.0-5.4); Red Cell Distribution Width 13 % (10.5-15); White Blood Count 16.6 10^3/ul (3.5-10.8)
[2017-02-16 07:29] LABS: ABS Monocytes 2.4 10^3/ul (0-0.8); ABS Neutrophils 11.9 10^3/ul (1.5-7.7)
[2017-02-16] MEDS: BREO ELLIPTA INH SCH (08:07)
[2017-02-16] MEDS: Losartan TAB* 25 MG PO SCH (08:22)
[2017-02-16] MEDS: Famotidine TAB* 20 MG PO SCH (08:22)
[2017-02-16] MEDS: Diltiazem CD CAP* 120 MG PO SCH (08:23)
[2017-02-16] MEDS: Omeprazole CAP* 20 MG PO SCH (08:23)
[2017-02-16] MEDS: Benzonatate CAP* 100 MG PO PRN (08:29)
[2017-02-16] MEDS: Multivitamins/Minera Areds(NF) 1 CAP CAP PO SCH (08:30)
[2017-02-16] MEDS ORDERED: predniSONE TAB* 20 MG PO SCH (09:00)
[2017-02-16 09:17] LABS: EGFR Non-African American 82.8 (>60)
[2017-02-16 11:26] VITALS: BP 143/71
[2017-02-16] MEDS ORDERED: Gentamicin Trough Level 1 NOTE MISC FOLLOW UP ONE (11:30)
[2017-02-16] MEDS: Gentamicin IVPREMIX 80 MG/80 ML BAG IV SCH (12:51)
[2017-02-16] MEDS: Tiotropium CAP.INH* CAP.INH/18 MCG (USE ORDER SET !) INH SCH (12:51)
[2017-02-16] MEDS ORDERED: D5W IVPB ONE (13:30)
[2017-02-16] MEDS ORDERED: AZTREONAM IVPB ONE (13:30)
--- NOTE | 2017-02-16 21:26 | DS ---
DISCHARGE SUMMARY: DATE OF ADMISSION: 02/11/17 DATE OF DISCHARGE: 02/16/17 DISCHARGE DIAGNOSES: 1. Respiratory infection, probable pneumonia, bacterial. 2. History of chronic obstructive pulmonary disease and asthma. 3. History of gastroparesis. 4. History of hypertension. 5. History of intermittent steroid therapy. 6. History of osteoporosis. 7. History of breast cancer. 8. History of osteoarthritis, status post bilateral hip and knee replacements. 9. Allergic rhinitis. 10. History of urinary tract infections. 11. History of uterine fibroids. 12. Drug allergies to ASPIRIN, DARIUS INHIBITORS, PENICILLIN, NSAIDs. 13. Mild aortic stenosis and regurgitation. HISTORY: Josette Rangel is an 81-year-old woman admitted for near syncope, weakness, and cough. Please see the dictated admission note for details of the present illness, past medical history, family history, social and personal history, review of systems, and physical examination. LABORATORY DATA: CBC on admission: WBC 17.9, H and H of 11.9/35, MCV 88, PLT 453K. White count subsequently went up to 23.8 on 02/12/17, went down to 16.6 on 02/14/17 and 02/16/17. H and H on 02/16/17 was 12.5/37. INR, PTT were essentially normal. D-dimer was mildly elevated at 533. Blood gases on , which I believe were on 3 L nasal cannula O2, but not noted on the report, pH 7.48, pCO2 39, pO2 69. Chemistries: Sodium 128, potassium 3.6, chloride 92 , CO2 28, BUN and creatinine 22/0.78. Rest of the comprehensive metabolic panel was abnormal for alkaline phosphatase, mildly elevated at 147. Total protein slightly low at 6.1. Lactic acid was normal at 2. CRP started at 5.20, went up to 14.06 on 02/11/17, was 160.82 on 02/12/17, and was down to 28.58 on 02/16/17. Troponin Is were normal x3 on 02/11/17 and 02/12/17. Procalcitonin started at less than 0.1, went up to 0.2 on 02/11/17, then 0.7 which was above normal on 02/12/17 and was down to 0.2 by 02/14/17. Phosphorus was normal at 3.3, magnesium was normal at 2.2. Urinalysis normal. Gentamicin trough was 1 on 02/13/17 and random less than 0.4 on 02/14/17. Sputum and blood cultures were no growth. Urine for Legionella urinary antigen and Streptococcus pneumoniae antigens were negative. Sputum Gram stain on 02/13/17 showed 4+ neutrophils, 3+ epithelial cells, mixed tracie and grew yeast, and normal tracie on culture. IMAGING: On 02/11/17, portable chest x-ray showed COPD with no acute cardiopulmonary disease. Abdominal and pelvis CT on 02/11/17 showed mild biliary dilatation, atherosclerosis, left inferior lumbar triangle hernia without obstruction. There were calcified uterine fibroids. There were cysts in the liver. Spine was noted to be scoliotic. She was status post bilateral hip arthroplasty. V/Q lung scan showed no pulmonary perfusion defects. Venous Doppler study of the lower extremities were negative for DVT. Chest x-ray on showed no acute disease, no clear pneumonia. CARDIAC TESTING: EKG on 02/11/17 showed sinus tachycardia, LVH. Transthoracic echocardiogram on 02/11/17 showed normal ejection fraction, aortic annular calcification with mild aortic stenosis and regurgitation, [id number] mitral regurgitation, [id number] tricuspid regurgitation. HOSPITAL COURSE: The patient was initially admitted and started on IV Levaquin and steroids for COPD exacerbation. She was monitored on telemetry because of the episode of near- syncope. Troponins were trended and myocardial infarction ruled out. She was full code. She received DVT prophylaxis with subcutaneous heparin. She continued on her usual medications. Procalcitonin spiked and she did not feel better the day following admission, so aztreonam and gentamicin were ordered to cover for pulmonary Pseudomonas in the setting of recent treatment with steroids for COPD. It was felt that she could have an occult pneumonia that was not clearly viewed on chest x-ray and that she should be covered for this in view of the markedly elevated CRP and rising procalcitonin. With this triple antibiotic therapy, she started to improve. Her CRP and procalcitonin came down as her cough improved and she began to feel stronger. She continued to cough up light yellow sputum. On the morning of 02/16/17, she was exhausted because she had not slept well due to a noisy roommate. She felt weak and urinated as she was getting out of bed and getting things out of the closet, to bring into the bathroom, slipped but did not injure herself. She felt well enough to be discharged to home. PHYSICAL EXAMINATION: At the time of discharge, her vital signs were blood pressure 146/67, pulse 90, respirations 18, temperature afebrile, O2 saturation 98% on room air. Initially, she needed oxygen, but does not needed any longer. Chest is clear with diminished breath sounds. Heart is regular. Extremities showed no calf tenderness. No edema. It was felt that she had a respiratory infection and probably a small pneumonia , not seen on chest x-ray and she has improved. She received enough antibiotics and steroids. Her blood pressure is up slightly likely due to steroids as is her pulse. She is being discharged. She feels up to going home. She was seen in the presence of her . At the time of discharge, her diet is usual. Her activity as tolerated. MEDICATIONS: 1. Spiriva 1 inhalation once a day. 2. Breo Ellipta 225 once a day. 3. Xopenex 2 puffs every 4 hours as needed for cough or shortness of breath. 4. Diltiazem CD 120 mg daily. 5. Amlodipine 2.5 mg daily. 6. Omeprazole 20 mg twice a day. 7. Vitamin D3 200 units once a day. 8. Probiotic once a day. 9. Ranitidine 150 mg twice a day. 10. Irbesartan 150 mg once a day. 11. Tessalon Perles 100 mg 1 to 2 three times a day as needed for cough. 12. She will continue to take other supplements as before. FOLLOWUP: She will follow up with me in 1 week. [id number]/[facility] #: [id number] CHARLIE
[2017-02-16] MEDS ORDERED: Aztreonam (*) 2 GM in NS 0.9% 100 ML* 100 ML IVPB SCH (21:30)
== END 2017-02-16 12:45 | disposition home or self-care (01) | DRG 194 ==
LOC: ED 03:33 → MEDTELE 11:28 → MED 02-13 19:22
PROVIDERS: ADMIT Internal Medicine Geriatric Medicine; ATTEND Internal Medicine Geriatric Medicine
DX: J15.9 Unspecified bacterial pneumonia (principal); J44.0 Chronic obstructive pulmonary disease with (acute) lower respiratory infection; I48.91 Unspecified atrial fibrillation; K31.84 Gastroparesis; E11.43 Type 2 diabetes mellitus with diabetic autonomic (poly)neuropathy; I08.3 Combined rheumatic disorders of mitral, aortic and tricuspid valves; J44.1 Chronic obstructive pulmonary disease with (acute) exacerbation; K70.9 Alcoholic liver disease, unspecified; M81.0 Age-related osteoporosis without current pathological fracture; Z96.643 Presence of artificial hip joint, bilateral; K21.9 Gastro-esophageal reflux disease without esophagitis; E78.5 Hyperlipidemia, unspecified; Z96.653 Presence of artificial knee joint, bilateral; M19.90 Unspecified osteoarthritis, unspecified site; I10 Essential (primary) hypertension; K76.89 Other specified diseases of liver; I70.90 Unspecified atherosclerosis; K45.8 Other specified abdominal hernia without obstruction or gangrene; Z88.8 Allergy status to other drugs, medicaments and biological substances; Z85.3 Personal history of malignant neoplasm of breast; Z80.42 Family history of malignant neoplasm of prostate; Z87.440 Personal history of urinary (tract) infections; Z83.6 Family history of other diseases of the respiratory system; Z87.891 Personal history of nicotine dependence; Z88.0 Allergy status to penicillin
CPT/HCPCS: 36415; 36600; 71010; 71020; 74177; 78582; 80048; 80053; 80170; 81003; 82803; 83605; 83735; 83880; 84100; 84145; 84484; 85025; 85027; 85379; 85610; 85730; 86140; 86141; 87040; 87070; 87205; 87899; 93005; 93306; 93970; 94640; A9270-GY; A9540; A9558; J1580; J1644; J1956; J2405; J2930; J7512; Q9967

== ENCOUNTER 2017-03-03 11:55 | Day surgery (SDC) | payer MEDICARE ==
[~2017-03-03 11:55] MED LIST: Buffered Lidocaine 0.9% SYRIN* 5 ML/SYR SYRINGE INTRADERM ONE; Sodium Citrate/Citric Acid* 15 ML UDC PO ONE
[2017-03-03] MEDS ORDERED: Sodium Citrate/Citric Acid* 15 ML UDC ONE (11:59)
[2017-03-03] MEDS ORDERED: Buffered Lidocaine 0.9% SYRIN* 5 ML/SYR SYRINGE ONE (11:59)
[2017-03-03] MEDS ORDERED: Lidocaine 2% PF* 10 ML AMP ONE (13:05)
[2017-03-03] MEDS ORDERED: Lidocaine 1% INJ* 10 MG/ML 30 ML SDV ONE (13:05)
[2017-03-03] MEDS ORDERED: Lidocaine 2% JELLY* 6 ML JELLY TOPICAL ONE ×2 (13:06→13:17)
[2017-03-03] MEDS ORDERED: fentaNYL* 50 MCG/ML 2 ML VIAL (100 MCG VIAL) ONE (13:21)
[2017-03-03] MEDS ORDERED: Midazolam* 1 MG/ML 2 ML VIAL (2 MG) ONE (13:25)
[2017-03-03] MEDS ORDERED: Lidocaine 2% PF * 5 ML VIAL ONE (13:26)
[2017-03-03] MEDS ORDERED: Propofol* 10 MG/ML 20 ML BTL IV PUSH ONE (13:26)
[2017-03-03 16:08] VITALS: BP 133/69
--- NOTE | 2017-03-04 11:48 | PRO ---
BRONCHOSCOPY REPORT: DATE OF PROCEDURE: 03/03/17 - OUTPATIENT PROCEDURE PERFORMED BY: Padma Rodriguez MD ANESTHESIOLOGIST: Kevin Duran DO ANESTHESIA: Conscious sedation, local anesthesia. INDICATION FOR PROCEDURE: Persistent pneumonia in the left lower lobe. PROCEDURE PERFORMED: Bronchoscopy with bronchoalveolar lavage from left side and endobronchial biopsies from left lower lobe. DESCRIPTION OF PROCEDURE: Informed consent was obtained from the patient prior to the procedure after all the risks and benefits were thoroughly explained. The patient was recently seen for evaluation of persistent pneumonia symptoms with cough and sputum production. The patient had CT scan of the chest, which also showed dense consolidation in left lower lobe. Appropriate time-out was performed and agreed on by attending staff. A flexible Olympus bronchoscope was inserted after adequate local anesthesia was instilled through the left naris and through the vocal cords. Bronchoscope was inserted through the left naris, was stationed above the level of the vocal cords. No lesions were noted. The vocal cords were moving normally to inspiration. Bronchoscope was then inserted after 1% lidocaine 2 cc was instilled on the vocal cord and was advanced into the trachea. The patient noted to have broncholiths arising from the anterior wall. The patient did not have any lesions in the trachea. Bronchoscope was inserted into the right bronchial tree. Thin secretions were noted. Secretions were suctioned out. Bronchoscope was then advanced into the left bronchial tree. There were some mucosal irregularities in the left main stem bronchus and in the left lower lobe bronchus area. No obvious endobronchial lesions were noted. There were thick secretions and mucus plugs, which were suctioned out. Specimen was sent to the lab for microbiological testing. The specimen was also sent for cytological examination. Endobronchial biopsies were also obtained from the irregular mucosal lesion. The patient tolerated the procedure well. The patient was seen in Recovery in optimal condition. [id number]/[facility] #: [id number] [facility]
== END 2017-03-03 14:15 | disposition home or self-care (01) ==
LOC: OR 11:55
PROVIDERS: ATTEND Internal Medicine
DX: J18.8 Other pneumonia, unspecified organism (principal); J44.9 Chronic obstructive pulmonary disease, unspecified; I10 Essential (primary) hypertension; Z87.891 Personal history of nicotine dependence; Z85.3 Personal history of malignant neoplasm of breast; K21.9 Gastro-esophageal reflux disease without esophagitis; Z79.899 Other long term (current) drug therapy; J98.4 Other disorders of lung; R91.8 Other nonspecific abnormal finding of lung field
CPT/HCPCS: 87070; 87077; 87102; 87116; 87205; 87206; 88112; 88305; A9270-GY; J2001; J2250; J2704; J3010

== ENCOUNTER 2018-10-05 12:46 | Inpatient (IN) | payer MEDICARE ==
--- NOTE | 2018-10-05 13:48 | ED ---
Syncope/Near Syncope - HPI Summary HPI Summary: An 83 y/o female w hx paroxysmal atrial fibrillation brought in by [facility] accompanied by daughter and presents to [facility] with a chief complaint of a syncopal episode around 12:00. The patient had a witnessed syncopal episode where she went to sit in a chair and was unresponsive for 1-2 minutes. She states that she felt very lightheaded right before her syncopal episode and she became diaphoretic. She denies any CP, neck pain or arm pain. She says that her BP initially was low (70/40). She takes Diltiazem and Amlodipine. She had atrial fibrillation in 2003 when she had bronchitis states that this is not been a problem since then. Yesterday she had her teeth pulled under local anesthesia. She notes that she had a lot of pain and could not eat, but was able to eat some oatmeal this morning. She still has some swelling of her jaw. She is currently not taking any pain medication but did try gabapentin last night which she does not normally take. She denies any current dizziness/ lightheadedness. Her fisher hand line is Dr. Carter, she reports a Hx of LVH. She has two hip and two knee replacements and still exercises regularly. - History Of Current Complaint Chief Complaint: EDSyncope Time Seen by Provider: 10/05/18 13:19 Hx Obtained From: Patient, Family/Air Turning Machine Feeder, EMS Onset/Duration: Sudden Onset, Resolved - syncopal episode for 1-2 minutes Timing: Intermittent Episode Lasting - 1 episode for 1-2 minutes Context: Witnessed Activity At Onset: Other - was walking, sat down in a chair, then became unresponsive for 1-2 minutes Aggravating Factor(s): Nothing Alleviating Factor(s): Nothing Associated Signs And Symptoms: Diaphoresis, Dizzy - Allergies/Home Medications Allergies/Adverse Reactions: Allergies Allergy/AdvReac Type Severity Reaction Status Date / Time NSAIDS (Non-Steroidal Allergy Severe Swelling Verified 10/05/18 12:59 Anti-Inflamma Of Face,Lips,& Throat Penicillins Allergy Severe Swelling Verified 10/05/18 12:59 Of Face,Lips,& Throat amoxicillin Allergy Intermediate Rash Verified 10/05/18 12:59 ramipril Allergy Intermediate Coughing Verified 10/05/18 12:59 Home Medications: Home Medications Ascorbic Acid TAB* [Vitamin C TAB*] 500 mg PO DAILY 10/05/18 [History Confirmed 10/05/18] Azelastine/Fluticasone SUZANNA(NF [Dymista(NF)] 1 spray BOTH NARES BID 10/05/18 [ History Confirmed 10/05/18] Beclomethasone 80 MCG MDI(NF) [Qvar 80 MCG MDI(NF)] 2 puff INH BID PRN 10/05/18 [History Confirmed 10/05/18] Budesonide/Formote 160/4.5(NF) [Symbicort 160/4.5 (NF)] 2 puff INH BID 10/05/18 [History Confirmed 10/05/18] LevoCETirizine TAB (NF) [Xyzal TAB (NF)] 5 mg PO DAILY 10/05/18 [History Confirmed 10/05/18] Magnesium Oxide TAB* [MagOx 400 TAB*] 400 mg PO DAILY 10/05/18 [History Confirmed 10/05/18] Teriparatide [Forteo] 200 mcg SUBCUT QPM 10/05/18 [History Confirmed 10/05/18] Umeclidinium 62.5 MDI(NF) [Incruse ELLIPTA MDI (NF)] 1 puff INH DAILY 10/05/18 [ History Confirmed 10/05/18] Vit A/Vit C/Vit E/Zinc/Copper [Preservision Areds Softgel] 1 cap PO BID [History Confirmed 10/05/18] amLODIPine TAB* [Norvasc 5 mg TAB*] 2.5 mg PO QPM 10/05/18 [History Confirmed ] dilTIAZem HCl [Dilt-Xr] 120 mg PO DAILY 10/05/18 [History Confirmed 10/05/18] PMH/Surg Hx/FS Hx/Imm Hx Endocrine/Hematology History: Denies: Hx Diabetes, Hx Anemia Cardiovascular History: Reports: Hx Coronary Artery Disease, Hx Hypertension - controlled with meds, Hx Valvular Heart Disease, Other Cardiovascular Problems/ Disorders - LVH, a fib Respiratory History: Reports: Hx Asthma, Hx Chronic Obstructive Pulmonary Disease (COPD), Hx Pneumonia - possible GI History: Reports: Hx Gastroesophageal Reflux Disease, Other GI Disorders - hx of gastroparesis Denies: Hx Jaundice History: Reports: Other Problems/Disorders - UTI Denies: Hx Dialysis, Hx Renal Disease Musculoskeletal History: Reports: Hx Arthritis - R SHOULDER, osteoporosis, Hx Osteoporosis, Other Musculoskeletal History - Bilat hip replacements, Bilat knee replacements Sensory History: Reports: Hx Contacts or Glasses - reading glasses only Denies: Hx Hearing Aid Opthamlomology History: Reports: Hx Contacts or Glasses - reading glasses only Neurological History: Denies: Hx Seizures, Hx Transient Ischemic Attacks (TIA) - Cancer History Cancer Type, Location and Year: breast CA Hx Chemotherapy: No - radiation - Surgical History Surgery Procedure, Year, and Place: bilat THAs. Bilat knees. Appy. R breast lumpectomy with no lymph node involvement. both eye cataracts with IOL Hx Anesthesia Reactions: No Infectious Disease History: No Infectious Disease History: Denies: Traveled Outside the [place] in Last 30 Days - Family History Known Family History: Positive: Other - Prostate CA - Social History Alcohol Use: Rare Hx Substance Use: No Substance Use Type: Reports: None Hx Tobacco Use: No Smoking Status (MU): Former Smoker Amount Used/How Often: smoked for 50 years 02/25-1/2ppd Review of Systems Positive: Skin Diaphoresis - FURNITURE SALESPERSON. Negative: Fever Positive: Other - positive: Jaw swelling Negative: Chest Pain Negative: Myalgia Neurological: Other - positive: dizziness FURNITURE SALESPERSON Positive: Syncope - 1-2 minutes per daughter All Other Systems Reviewed And Are Negative: Yes Physical Exam - Summary Physical Exam Summary: Constitutional: Well-developed, Well-nourished, Alert. (-) Distressed Skin: Warm, Dry HENT: Normocephalic; Atraumatic, left mandibular swelling Eyes: Conjunctiva normal Neck: Musculoskeletal ROM normal neck. (-) JVD, (-) Stridor, (-) Nuchal rigidity Cardio: Rhythm regular, rate normal, Heart sounds normal; Intact distal pulses; Radial pulses are 2+ and symmetric. (-) Murmur Pulmonary/Chest wall: Effort normal. (-) Respiratory distress, (-) Wheezes, (-) Rales Abd: Soft, (-) tenderness, (-) Distension, (-) Guarding, (-) Rebound Musculoskeletal: (-) Edema Lymph: (-) Cervical adenopathy Neuro: Alert, Oriented x3 Psych: Mood and affect Normal Triage Information Reviewed: Yes Vital Signs On Initial Exam: Initial Vitals Temp Pulse Resp BP Pulse Ox 97.9 F 74 22 161/80 99 10/05/18 12:51 10/05/18 12:51 10/05/18 12:51 10/05/18 12:51 10/05/18 12:51 Vital Signs Reviewed: Yes Diagnostics - Vital Signs Vital Signs Temp Pulse Resp BP Pulse Ox 10/05/18 12:51 97.9 F 74 22 161/80 99 - Laboratory Result Diagrams: 10/05/18 13:54 10/05/18 13:54 Lab Statement: Any lab studies that have been ordered have been reviewed, and results considered in the medical decision making process. - Radiology CXR Radiology Interpretation Completed By: Radiologist Summary of Radiographic Findings: Stigmata of obstructive lung disease. Upper normal heart size. No acute cardiopulmonary process evident. ED physician has reviewed this imaging report. - EKG 13:45 Cardiac Rate: NL - 75 bpm EKG Rhythm: Sinus Rhythm Summary of EKG Findings: An EKG at 14:45 reveals normal sinus rhythm at 75 bpm, ST depressions V4, V5, V6, LVH, no change from previous EKG. Course/Dx Course Of Treatment: 83-year-old female with a history of atrial fibrillation, hypertension, mitral stenosis who presents with syncope. Patient had an echo in 2017 showing an EF of 50-55%. Patient had mitral regurg and aortic stenosis. Syncope. DDx: most concerning would be cardiac cause such as arrhythmia or aortic stenosis (had mild stenosis on echo). Place on telemetry, troponin, and echo. Also consider vasovagal, dehydration given recent procedure and likely poor PO intake over the past 24 hours. Will give 1 L of IV fluids. Cr elevated mildly form baseline of. 0.9, hyponatremic to 129 however she is a history of hyponatremia secondary to increased free water intake in past. Does not appear to be volume overloaded at this time. Well send urine electrolytes. Seizure: no witnessed seizure activity, incontinence or h/o seizures to suggest seizure today. Hypoxia and hypoglycemia less likely in this patient with normal sats and BG. Vessels: PE, dissection, AAA. Clinical picture inconsistent, no abd pain, no pulsatile mass, symmetric pulses, no risk factors of PE. Neuro: No CAVAZOS , no personal or family h/o cerebral aneurysm, nml neuro exam, so this is unlikely ICH or sentinel bleed - Diagnoses Provider Diagnoses: Syncope, Hyponatremia - Physician Notifications Discussed Care of Patient With: Sana Carter Time Discussed With Above Provider: 14:15 Instructed by Provider To: Other - repeat Echo and continue monitoring Discharge - Sign-Out/Discharge Documenting (check all that apply): Patient Departure - admit Patient Received Moderate/Deep Sedation with Procedure: No - Discharge Plan Condition: Fair Disposition: ADMITTED TO [facility] Referrals: Anali Klein MD [Primary Care Provider] - - Billing Disposition and Condition Condition: FAIR Disposition: Admitted to [facility] - Attestation Statements Document Initiated by Scribe: Yes Documenting Scribe: Mc Reinoso Provider For Whom Scribe is Documenting (Include Credential): Scout Stokes MD Scribe Attestation: Mc Navarro, scribed for Scout Stokes MD on 10/05/18 at 1613. Scribe Documentation Reviewed: Yes Provider Attestation: The documentation as recorded by the Mc benavides accurately reflects the service I personally performed and the decisions made by Scout garcia MD Status of Scribe Document: Viewed Consult Consult: At 14:[address] Mullen, hospitalist, who accepted the patient for admission.
[2018-10-05 14:04] LABS: ABS Basophils 0.1 10^3/ul (0-0.2); ABS Eosinophils 0.1 10^3/ul (0-0.6); ABS Lymphocytes 0.8 10^3/ul (1.0-4.8); ABS Monocytes 1.4 10^3/ul (0-0.8); ABS Neutrophils 8.5 10^3/ul (1.5-7.7); Eosinophil % 0.5 %; Hematocrit 32 % (35-47); Hemoglobin 10.6 g/dL (12.0-16.0); Lymphocyte % 7.1 %; Mean Corpuscular HGB Conc 33 g/dL (31-36); Mean Corpuscular Hemoglobin 28 pg (27-31); Mean Corpuscular Volume 86 fL (80-97); Mean Platelet Volume 6.5 fL (7.4-10.4); Platelet Count 396 10^3/uL (150-450); Red Blood Count 3.74 10^6 /uL (3.70-4.87); Red Cell Distribution Width 15 % (10-15); White Blood Count 10.7 10^3/uL (3.5-10.8)
[2018-10-05 14:19] LABS: Albumin 3.9 g/dL (3.2-5.2); Albumin/Globulin Ratio 1.4 (1-3); BUN/Creatinine Ratio 22.3 (8-20); Calcium 9.3 mg/dL (8.6-10.3); EGFR African American 61.8 (>60); EGFR Non-African American 51.1 (>60); Globulin 2.7 g/dL (2-4); INR 0.96 (0.82-1.09); Potassium 4.8 mmol/L (3.5-5.0); Total Bilirubin 0.6 mg/dL (0.2-1.0); Total Protein 6.6 g/dL (6.4-8.9)
[2018-10-05] MEDS ORDERED: NS 0.9% 1000 ML** 1,000 ML IV ONE (14:28)
--- NOTE | 2018-10-05 16:38 | ECHO ---
*[facility]* [place] [address] Fax #: [phone] Transthoracic Echocardiogram Patient: Josette Rangel : 1935 Study Date: 10/05/2018 Age: 83 Gender: F HR: 75 bpm Height: 60 in /152.4 cm BSA: 1.44 m^2 Weight: 108.8 lb /49.4 kg BMI: 21.3 kg/m^2 *Synchro Assembler: * Kristel Watson RD *Referring Physician: * Scout Stokes *Reading Physician: * Sana Carter MD Indications: Syncope. History: Atrial fibrillation. Coronary artery disease. Chronic obstructive pulmonary disease. Breast cancer. Risk factors: Former tobacco use. Hypertension. Conclusions Summary: - Left ventricle: Systolic function is at the lower limits of normal. The estimated ejection fraction is 50-55%. Doppler parameters are consistent with abnormal left ventricular relaxation (grade 1 diastolic dysfunction). - Right ventricle: Systolic function is normal. - Mitral valve: There is mild regurgitation. - Aortic valve: The findings are consistent with mild to moderate stenosis. There is trace to mild regurgitation. The mean systolic gradient is 12.0 mm Hg. The valve area by the velocity-time integral method is 0.98 cm^2. The valve area by the peak velocity method is 1.15 cm^2. - Tricuspid valve: There is moderate regurgitation. - Pulmonary arteries: Systolic pressure is mildly to moderately increased. The peak pressure during systole by Doppler is 40.0 mm Hg. - Compared with prior echocardiogram of 02/11/17, left ventricle chamber diameter has decreased, ejection fraction is stable, AI is stable, previously estimated as mild with mean gradient 11 mmHg and YANE estimated at 2 cm2.. Tricuspid regurgitation has increased from mild, pulmonary artery pressure previously 37 mmHg, not significantly changed. Study data: Transthoracic echocardiogram. Procedure: Transthoracic echocardiography was performed. Image quality was fair. Complete 2D, spectral Doppler, and color flow Doppler. Location: Emergency department. Patient status: Inpatient. Patient room number: ED-11. Rhythm: Normal sinus rhythm. Findings Left ventricle: The cavity size is at the lower limits of normal. Wall thickness is normal. Systolic function is at the lower limits of normal. The estimated ejection fraction is 50-55%. Wall motion is normal; there are no regional wall motion abnormalities. Doppler parameters are consistent with abnormal left ventricular relaxation (grade 1 diastolic dysfunction). Right ventricle: The cavity size is normal. The moderator band is in a normal position. Systolic function is normal. Systolic pressure is mildly to moderately increased. Left atrium: The atrium is severely dilated. Right atrium: The atrium is mildly dilated. The Eustachian valve appeared prominant. Mitral valve: Appears mildly calcified. The leaflets are mildly thickened. There is no evidence of stenosis. There is mild regurgitation. Aortic valve: The annulus is mildly calcified. The valve is trileaflet. The leaflets are moderately thickened. The findings are consistent with mild to moderate stenosis. There is trace to mild regurgitation. Tricuspid valve: The leaflets are normal thickness. There is no evidence of stenosis. There is moderate regurgitation. Pulmonic valve: The leaflets are normal thickness. There is no evidence of stenosis. There is trace regurgitation. Aorta: Ascending aorta: The ascending aorta is appears normal. The aortic root appears normal. The aortic arch appears normal. Pericardium: A prominent pericardial fat pad is present. There is no significant pericardial effusion. Pulmonary arteries: The main pulmonary artery is normal-sized. Systolic pressure is mildly to moderately increased. Systemic veins: Inferior vena cava: The vessel is dilated. There is (>= 50%) respiratory change in the IVC dimension. Measurements Left ventricle Value Ref Aortic valve Value Ref ANNE, LAX 3.8 cm 3.8 - 5.2 Maxx diam, ED 2.2 cm ----- ESD, LAX 3.1 cm 2.2 - 3.5 Peak v, S 2.4 m/sec ----- FS, LAX (L) 19 % 27 - 45 VTI, S 64.3 cm ----- PW, ED, LAX (H) 1.0 cm 0.6 - 0.9 Mean grad, S 12.0 mm Hg ----- FS (L) 19 % 27 - 45 Peak grad, S 23.0 mm Hg ----- PW, ED (H) 1.0 cm 0.6 - 0.9 LVOT/AV, VTI ratio 0.31 ----- E', lat maxx, TDI (L) 8.3 cm/sec >=10.0 YANE, VTI 0.98 cm^2 --- -- E/e', lat maxx, 12 YANE, Vmax 1.15 cm^2 ----- TDI E', med maxx, TDI 7.1 cm/sec >=7.0 Mitral valve Value Ref E/e', med maxx, 14 Peak E 0.99 m/sec ----- TDI Peak A 1.31 m/sec ----- E', avg, TDI 7.7 cm/sec Decel time 141 ms ----- E/e', avg, TDI 13 <=14 Peak grad, D 3.9 mm Hg --- -- Peak E/A ratio 0.8 ----- LVOT Value Ref Diam, S 2.00 cm Pulmonic valve Value Ref Area 3.1 cm^2 Peak v, S 1.04 m/sec ----- Peak lazaro, S 0.88 m/sec Peak grad, S 4.0 mm Hg ----- VTI, S 20.0 cm Mean grad, S 2 mm Hg Tricuspid valve Value Ref SV 61 ml TR peak v (H) 3 m/sec <=2.8 SV/bsa 42 ml/m^2 Peak RV-RA grad, S 36 mm Hg ----- Ventricular septum Value Ref Aortic root Value Ref IVS, ED (H) 1.0 cm 0.6 - 0.9 Root diam 2.9 cm <3.7 Right ventricle Value Ref Ascending aorta Value Ref ANNE, LAX 4.2 cm AAo AP diam, S 3.6 cm ----- ANNE minor ax, A4C (H) 4.1 cm 1.9 - 3.5 mid Aortic arch Value Ref Pressure, S 44 mm Hg Arch diam 2.6 cm ----- Left atrium Value Ref Decending aorta Value Ref AP dim, ES (H) 4.20 cm 2.70 - [place] peak lazaro 0.7 m/sec ----- 3.80 ML dim, A4C 5.3 cm Pulmonary artery Value Ref SI dim, A4C 5.7 cm Pressure, S 40.0 mm Hg ----- Vol/bsa, ES, 1-p (H) 56 ml/m^2 11 - 40 A4C Inferior vena cava Value Ref Vol/bsa, ES, A/L (H) 66 ml/m^2 16 - 34 Diam 2.6 cm ----- Right atrium Value Ref SI dim, ES 4.6 cm 3.4 - 5.3 ML dim, ES, A4C 3.9 cm 2.6 - 4.4 SI dim, ES, A4C 4.6 cm 3.4 - 5.3 SI dim/bsa, ES, (H) 3.2 cm/m^2 1.9 - 3.1 A4C Estimated RAP 8 mm Hg Legend: (L) and (H) lashawn values outside specified reference range. Prepared and electronically signed by Sana Carter MD 10/05/2018 16:38
[2018-10-05 16:42] LABS: Urine Potassium Concentration 38.1 mmol/L
[2018-10-05] MEDS ORDERED: Enoxaparin(*) 30 MG/0.3 ML SYR SUBCUT SCH (17:00)
[2018-10-05] MEDS ORDERED: Mometasone 220 MCG MDI INH PRN (17:33)
[2018-10-05] MEDS ORDERED: Cholecalciferol TAB* 1000 UNITS PO SCH ×2 (18:00→21:00)
[2018-10-05] MEDS ORDERED: GuaiFENesin DM* 5 ML UDC PO PRN (18:13)
--- NOTE | 2018-10-05 18:35 | HP ---
History of Present Illness - History of Present Illness Reason for Visit: Syncope History of Present Illness: 83 y/o F with history of HTN, pAF(15 years ago), LV hypertrophy and grade I diastolic dysfunction and COPD present with 1 episode of passing out, that happened today at noon. It was preceeded by light-headedness, dizziness and diaphoresis. She was talking with her family when she felt so then sat down on a chair and was unresponsive for 1-2 minute.Her daughter was with her when this happened. She didnot notice any jerking movement of body, no kole biting or frothing. She was not so confused after the episode. No any chest pain, Palpitation, SOB. No any facial droop, slurring of speech or focal neurologic deficit. Patient states that she had her 4 teeth extracted yesterday and was feeling soreness around her jaw. She did not take any pain medication after the extraction but she did take gabapentin that her had and is talking it for 6-7 days because read some article about it benefits. She says that she have been eating and drinking well after the extraction but was feeling little bit tired. She also has chronic cough; complains of post nasal drip. After this patient her family called 911 and EMS arrived. She was already awake and talking then. She states that during the transport to [facility] she was chatting well with the paramedics. After arrival, blood work was done which showed hyponatremia and slight rise in creatinine(1.06). EKG showed nonspecific changes which was similar to her last ekg finding. Troponin was negative. Chest xray was normal. Planned for Echo. - Past Medical History Past Medical History: History of HTN FOR LAST 17 YEARS; on amlodipine, irbesartan and diltiazem; Well controlled with medication Hx of Atrial fibrillation 15 years ago COPD on medication. LVH on echo. Cardiac catheterization done which didnot show any CAD - Past Surgical History Past Surgical History: Tooth extraction done yesterday. B/L hip and knee replacement done Appendectomy, Lumpectomy with radiation done on ?rt/lft breast(pt not sure). Last hospitalization on January 2018 for pneumonia - Past Family History Past Family History: Father: Prostate cancer Mother; Asthma, MV replacement - Past Social History Past Social History: Ocassionally drinks alcohol; once/twice every month Left smoking 52 years ago No any recreational drug use. Review of Systems - Review of Systems Respiratory: Positive: Cough Cardiovascular: Positive: Light Headedness - Medications/Allergies Allergies/Adverse Reactions: Allergies Allergy/AdvReac Type Severity Reaction Status Date / Time NSAIDS (Non-Steroidal Allergy Severe Swelling Verified 10/05/18 12:59 Anti-Inflamma Of Face,Lips,& Throat Penicillins Allergy Severe Swelling Verified 10/05/18 12:59 Of Face,Lips,& Throat amoxicillin Allergy Intermediate Rash Verified 10/05/18 12:59 ramipril Allergy Intermediate Coughing Verified 10/05/18 12:59 Medications: Current Medications Amlodipine Besylate (Norvasc Tab*) 2.5 mg PO DAILY AUDREY Ascorbic Acid (Vitamin C Tab*) 500 mg PO DAILY AUDREY Azelastine/Fluticasone (Dymista(Nf)) 1 spray BOTH NARES BID AUDREY Beclomethasone Dipropionate (Qvar 80 Mcg Mdi(Nf)) 2 puff INH BID PRN PRN Reason: SOB/WHEEZING Budesonide/Formoterol Fumarate (Symbicort 160/4.5 (Nf)) 2 puff INH BID AUDREY; Protocol Cetirizine HCl (Zyrtec*) 10 mg PO DAILY AUDREY Cholecalciferol (Vitamin D Tab*) 2,000 units PO QPM AUDREY Diltiazem HCl (Cardizem Cd Cap*) 120 mg PO DAILY AUDREY Enoxaparin Sodium (Lovenox(*)) 30 mg SUBCUT Q24H AUDREY Losartan Potassium (Cozaar Tab*) 50 mg PO QAM AUDREY Magnesium Oxide (Magox 400 Tab*) 400 mg PO DAILY AUDREY Multivitamins/Minerals (Preservision Areds(Multivitamins/Mineral)(Nf)) 1 cap PO BID AUDREY Non-Formulary Medication (Teriparatide [Forteo]) 200 mcg SUBCUT QPM AUDREY Pantoprazole Sodium (Protonix Tab*) 40 mg PO BID AUDREY Umeclidinium [place] (Incruse Ellipta Mdi (Nf)) inh INH DAILY AUDREY Exam Vital Signs: Vital Signs (72 hours) 10/05/18 10/05/18 10/05/18 12:51 13:04 13:34 Temperature 97.9 F Pulse Rate 74 71 70 Respiratory 22 19 19 Rate Blood Pressure 161/80 143/74 133/69 (mmHg) O2 Sat by Pulse 99 100 98 Oximetry 08/14/19 08/14/19 08/14/19 14:00 14:38 15:00 Temperature Pulse Rate 69 71 75 Respiratory 24 22 19 Rate Blood Pressure 153/76 (mmHg) O2 Sat by Pulse 98 99 95 Oximetry 10/05/18 10/05/18 10/05/18 15:04 15:34 16:00 Temperature Pulse Rate 73 73 82 Respiratory 15 16 28 Rate Blood Pressure 148/68 165/82 (mmHg) O2 Sat by Pulse 96 98 98 Oximetry 10/05/18 10/05/18 10/05/18 16:04 16:34 17:00 Temperature Pulse Rate 85 76 83 Respiratory 23 17 25 Rate Blood Pressure 163/78 163/73 (mmHg) O2 Sat by Pulse 97 100 100 Oximetry 10/05/18 10/05/18 10/05/18 17:04 17:14 17:31 Temperature 98.2 F Pulse Rate 79 72 79 Respiratory 20 15 16 Rate Blood Pressure 174/97 153/76 139/89 (mmHg) O2 Sat by Pulse 99 97 94 Oximetry Exam: patient is lying on a bed and not in acute distress. Heent: Redness and swelling on left jaw. Lungs: Clear Heart: S1/S2 heard. Systolic murmur heard on upper sternal border. Abdomen: Soft, nondistended and nontender Extremities: Normal Neuro: Alert, conscious and oriented. CN intact. Moving all four extremity equally. Assessment/Plan - Assessment/Plan Assessment: 83 y/o F with history of HTN, Afib, COPD presented with 1 episode of syncope today morning preceeded by lightheadedness, dizziness and diaphoresis. Most likely due to dehydration or vasovagal syncope. Less likely due to MT, Valvular heart disease, Arrythmia and Stroke. Found to have elevated creatinine and hyponatremia; suggestive of hypovolemia. Plan: 1. Syncope: Most likely due to dehydration in the setting of teeth extraction yesterday. Dehydration suggested by elevated creatinine and hyponatremia( may be due to hypovolemia). IVF given. EKG and troponin negative so r/o MT. Need echo to r/o Valvular heart disease(). Patient on tele monitoring to look for any rhythm disorder. 2. Hypertension: Her blood pressure was in the range of 160-175/80-97 mm HG. May be due to stress and whte coat htn. Monitor her blood pressure. Continue home amlodipine, irbesartan and diltiazem. 3. COPD: Continue home medication. 4. DVT prophylaxis: Lovenox SC. 5. Code: Full Attestation Documenting Resident: Cesar Perales Supervising Physician: Ovidio Smith Attending/Supervising Physician Comment: Agree with assessment and plan as outlined in body of Dr. Perales's note here. 83 F s/p teeth extraction with sudden LOC preceded by prodrome of LH and diaphoresis. Suspect vasovagal in setting of pain and/or contribution from dehydration in setting of recent procedure. Unclear contribution from gabapentin she was taking from her her 's supply. Telemetry overnight trop negative on presentation IVF and trend kidney fxn in AM (improved at this point) TTE wnl Attestation: This service has been performed in part by a resident under the direction of a teaching physician.I, Ovidio Smith, performed the service, or was physically present during the critical, or sheppard portions of the service, furnished by the resident. I participated in the management of the patient.
[2018-10-05] MEDS: Mometasone/Formoter 200/5 MDI INH SCH ×2 (19:21→20:04)
[2018-10-05] MEDS ORDERED: TERIPARATIDE 20 MCG SUBCUT SCH (20:00)
[2018-10-05] MEDS: NFT: Azelastine/Fluticasone 137-50 MCG BTL (NF) BOTH NARES SCH (20:58)
[2018-10-05] MEDS: Pantoprazole TAB * 40 MG TAB PO SCH (21:00)
[2018-10-05] MEDS: MINERA AREDS PO SCH (21:00)
[2018-10-05] MEDS: MULTIVITAMINS PO SCH (21:00)
[2018-10-05] MEDS ORDERED: amLODIPine TAB* 5 MG PO SCH (21:05)
[2018-10-06 05:25] LABS: BUN/Creatinine Ratio 23.6 (8-20); Calcium 9.4 mg/dL (8.6-10.3); EGFR African American 93.4 (>60); EGFR Non-African American 77.2 (>60); Potassium 4.4 mmol/L (3.5-5.0)
[2018-10-06] MEDS: Mometasone/Formoter 200/5 MDI INH SCH (08:13)
[2018-10-06 08:14] VITALS: BP 163/75
[2018-10-06] MEDS: Pantoprazole TAB * 40 MG TAB PO SCH (08:27)
[2018-10-06] MEDS: MINERA AREDS PO SCH (08:28)
[2018-10-06] MEDS: NFT: Azelastine/Fluticasone 137-50 MCG BTL (NF) BOTH NARES SCH (08:28)
[2018-10-06] MEDS: MULTIVITAMINS PO SCH (08:28)
[2018-10-06] MEDS ORDERED: Cetirizine* 10 MG TAB PO SCH (09:00)
[2018-10-06] MEDS ORDERED: Losartan TAB* 25 MG PO SCH (09:00)
[2018-10-06] MEDS ORDERED: Magnesium Oxide TAB* 400 MG PO SCH (09:00)
[2018-10-06] MEDS ORDERED: Spiriva HANDIHALER DEVICE (NF) 1 EACH DEVICE INH ONE (09:00)
[2018-10-06] MEDS ORDERED: Ascorbic Acid TAB* 500 MG PO SCH (09:00)
[2018-10-06] MEDS ORDERED: Tiotropium CAPSULE (NF) 1 CAP/18 MCG CAP.INH INH SCH (09:00)
[2018-10-06] MEDS ORDERED: Diltiazem CD CAP* 120 MG PO SCH (09:00)
--- NOTE | 2018-10-06 13:34 | DS ---
DISCHARGE SUMMARY: DATE OF ADMISSION: 10/05/18 DATE OF DISCHARGE: 10/06/18 DISCHARGE DIAGNOSES: 1. Syncope, likely due to volume depletion, gabapentin, recent dental surgery. 2. Aortic stenosis. 3. Chronic obstructive pulmonary disease. 4. 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 5. History of gastroparesis. 6. Hypertension. 7. Osteoporosis. 8. History of breast cancer. 9. Osteoarthritis status post bilateral hip replacements and knee replacements. 10. Allergic rhinitis. 11. Hyponatremia. 12. Mild anemia. HISTORY: Josette Rangel is an 83-year-old woman admitted with a syncopal episode. Please see the dictated admission note for details of the present illness, past medical history, family history, social and personal history, review of systems , and physical examination. LABORATORY DATA: CBC on 10/05/18, WBC 10.7, H and H 10.6/32, MCV 86, PLT 396, 000. INR is 0.96. Chemistries: Sodium 129, potassium 4.8, chloride 97, CO2 of 23, BUN and creatinine 23/1.03, glucose 103. Rest of her comprehensive metabolic panel was within normal limits except for the alkaline phosphatase slightly elevated at 163 (normal for a patient). Repeat chemistries on ([facility]) sodium 132, potassium 4.4, chloride 100, CO2 25, BUN and creatinine 17/ 0.72, glucose 111, calcium 9.4. Urine sodium is 64, potassium 38.1, urine chloride 59. IMAGING: Chest x-ray on 10/05/18 showed stigmata of obstructive lung disease, upper normal heart size, no acute cardiopulmonary process evident. She had patchy rarefaction of the [id number] lung field interstitial markings. EKG on 10/05/18 showed LVH, ST-T wave changes less marked than previous EKG and rate slower. Transthoracic echocardiogram read by Dr. Carter on 10/05/18, showed systolic function at the lower limits of normal, EF 50% to 55% and abnormal left ventricular relaxation with grade 1 diastolic dysfunction, mild mitral regurgitation, mild-to- moderate aortic stenosis with gradient of 12, valve area is 0.98 by the velocity time integral method and 1.15 by the peak velocity method, moderate tricuspid regurgitation, pulmonary artery pressure mild-to- moderately increased at 40. Compared to 02/11/17 echo, left ventricular chamber size has decreased, EF is stable, aortic stenosis has progressed, tricuspid regurgitation has increased, pulmonary artery pressure is similar. HOSPITAL COURSE: The patient was admitted, placed on telemetry monitoring. Telemetry monitoring showed sinus rhythm with PACs, PVCs. No significant arrhythmias. She had no further syncopal episodes in the hospital. She did not sleep well. Her vital signs were monitored. Blood pressures ranged from 127 to 163/62 to 89. She had no complaints. It was felt likely that the cause of her syncopal episode was a combination of volume depletion related to having had recent dental surgery, the dental surgery itself and perhaps the local anesthetic that was used and having been taking her 's gabapentin at the dose of 600 mg twice a day. She was instructed to stop taking gabapentin. She is going to maintain hydration. At the time of discharge, it was felt that she was feeling well, back to normal and could be discharged. She is discharged home in improved condition. MEDICATIONS AT THE TIME OF HER DISCHARGE: As follows: 1. Amlodipine 2.5 mg daily. 2. Forteo 20 mcg daily. 3. Irbesartan 150 mg daily. 4. PreserVision 1 cap twice a day. 5. Magnesium oxide 1 daily. 6. Ascorbic acid 500 mg daily. 7. Omeprazole 20 mg daily. 8. Cholecalciferol 2000 units daily. 9. Qvar 2 puffs twice a day as needed. 10. Incruse Ellipta 1 inhalation daily. 11. Symbicort 160/4.5 two puffs twice a day. 12. Dymista 1 spray both nares b.i.d. 13. Diltiazem 120 mg daily. 14. Xyzal 5 mg daily. She is to follow up with me in 4 to 7 days. At that time , we will further discuss her problems with insomnia. We also will follow up on her ROXY possible diagnosis, recent cultures. Of note, the most recent cultures done from June were negative for ROXY. [id number]/[facility] #: [id number] CHARLIE
== END 2018-10-06 11:44 | disposition home or self-care (01) | DRG 641 ==
LOC: ED 12:46 → MEDTELE 16:08
PROVIDERS: ADMIT Internal Medicine; ATTEND Internal Medicine Geriatric Medicine
DX: E86.0 Dehydration (principal); E87.1 Hypo-osmolality and hyponatremia; J44.9 Chronic obstructive pulmonary disease, unspecified; I48.0 Paroxysmal atrial fibrillation; I08.3 Combined rheumatic disorders of mitral, aortic and tricuspid valves; M81.0 Age-related osteoporosis without current pathological fracture; I10 Essential (primary) hypertension; R55 Syncope and collapse; J30.9 Allergic rhinitis, unspecified; D64.9 Anemia, unspecified; Z96.643 Presence of artificial hip joint, bilateral; Z96.653 Presence of artificial knee joint, bilateral; Z80.42 Family history of malignant neoplasm of prostate; Z82.5 Family history of asthma and other chronic lower respiratory diseases; Z87.891 Personal history of nicotine dependence; Z88.6 Allergy status to analgesic agent; Z88.1 Allergy status to other antibiotic agents; Z88.0 Allergy status to penicillin; Z88.8 Allergy status to other drugs, medicaments and biological substances; Z79.01 Long term (current) use of anticoagulants; Z79.51 Long term (current) use of inhaled steroids; Z79.899 Other long term (current) drug therapy
CPT/HCPCS: 36415; 71046; 80048; 80053; 82436; 84133; 84300; 84484; 85025; 85610; 93005; 93306; 94640; 99284; A9270-GY

== ENCOUNTER 2018-10-07 01:13 | Inpatient (IN) | payer MEDICARE ==
[2018-10-07] MEDS ORDERED: Famotidine IV* 10 MG/ML 2 ML (20 mg) IV SLOW PU ONE (01:23)
[2018-10-07] MEDS ORDERED: Ondansetron INJ* 2 MG/ML VIAL IV ONE (01:23)
[2018-10-07 01:46] LABS: ABS Lymphocytes 0.7 10^3/ul (1.0-4.8); ABS Monocytes 0.6 10^3/ul (0-0.8); ABS Neutrophils 9.4 10^3/ul (1.5-7.7); Hematocrit 32 % (35-47); Hemoglobin 10.6 g/dL (12.0-16.0); Lymphocyte % 6.3 %; Mean Corpuscular HGB Conc 34 g/dL (31-36); Mean Corpuscular Hemoglobin 29 pg (27-31); Mean Corpuscular Volume 85 fL (80-97); Mean Platelet Volume 6.3 fL (7.4-10.4); Platelet Count 398 10^3/uL (150-450); Red Blood Count 3.69 10^6 /uL (3.70-4.87); Red Cell Distribution Width 15 % (10-15); White Blood Count 10.6 10^3/uL (3.5-10.8)
[2018-10-07] MEDS ORDERED: Lactated Ringers 1000 ML Bag* 1,000 ML IV ONE (02:00)
[2018-10-07 02:03] LABS: Albumin 3.9 g/dL (3.2-5.2); Albumin/Globulin Ratio 1.3 (1-3); BUN/Creatinine Ratio 20.5 (8-20); Calcium 9.7 mg/dL (8.6-10.3); EGFR African American 91.9 (>60); Globulin 2.9 g/dL (2-4); Indirect Bilirubin 0.6 mg/dL (0.3-1.0); Potassium 4.2 mmol/L (3.5-5.0); Total Bilirubin 0.7 mg/dL (0.2-1.0); Total Protein 6.8 g/dL (6.4-8.9)
[2018-10-07 02:05] LABS: Troponin I 0.01 ng/mL (<0.04)
[2018-10-07 02:11] LABS: Urine Appearance Clear; Urine Bacteria Absent (Absent); Urine Bilirubin Negative (Negative); Urine Blood 2+ (Negative); Urine Color Colorless; Urine Glucose Negative (Negative); Urine Ketones Negative (Negative); Urine Nitrite Negative (Negative); Urine Protein Negative (Negative); Urine Red Blood Cell Trace(0-2/hpf) (Absent); Urine Specific Gravity 1.004 (1.010-1.030); Urine Urobilinogen Negative (Negative); Urine White Blood Cell Absent (Absent)
[2018-10-07] MEDS ORDERED: Albuterol/Ipratropium NEB.SOL* Albuterol 2.5 MG/Ipratropium 0.5 MG 3 ML INH ONE (02:13)
[2018-10-07] MEDS ORDERED: Benzonatate CAP* 100 MG PO ONE (02:16)
[2018-10-07] MEDS ORDERED: Albuterol/Ipratropium NEB.SOL* Albuterol 2.5 MG/Ipratropium 0.5 MG 3 ML ONE (02:20)
--- NOTE | 2018-10-07 02:48 | ED ---
Complex/Multi-Sys Presentation - HPI Summary HPI Summary: Patient is a 83 y/o F presenting to ED via EMS with complaints of nausea that suddenly onset today, 10/07/18, around midnight. Daughter also reports that the patient had a 1-2 minute episode of "unresponsiveness", stating that she slumped over, her eyes were closed, and she was not responding to her name. This spontaneously resolved. At present, she denies pain but notes some abdominal area soreness. Patient had been evaluated at [facility] for a syncopal episode on 10/05/18. Patient was admitted and discharged on 10/06/18. During inpatient stay, patient's sodium increased from 129 to 132. She had an echo done that appeared normal. Per discharge summary, "It was felt likely that the cause of her syncopal episode was a combination of volume depletion related to having had recent dental surgery, the dental surgery itself and perhaps the local anesthetic that was used and having been taking her 's gabapentin at the dose of 600 mg twice a day." estimates that the patient has been drinking around two quarts of water daily. She is not on blood thinners. Patient has a chronic cough which she states is unchanged from baseline. Daughter notes that the patient had been fatigued since yesterday afternoon, . PMHx of HTN, COPD, and asthma. She is on Diltiazem and Amlodipine. On triage, pain is denied, nothing is noted to aggravate/alleviate Sx. Home medications and allergies are reviewed. - History Of Current Complaint Chief Complaint: EDNauseaVomitDiarrh Time Seen by Provider: 10/07/18 01:26 Hx Obtained From: Patient, Family/All Source Intelligence Onset/Duration: Lasting Hours, Still Present Timing: Constant, Hours Severity Currently: None Aggravating Factor(s): nothing Alleviating Factor(s): nothing Associated Signs And Symptoms: Positive: Cough - chronic, Nausea, Other - positive - abdominal soreness, fatigue, "unresponsiveness" - Allergies/Home Medications Allergies/Adverse Reactions: Allergies Allergy/AdvReac Type Severity Reaction Status Date / Time NSAIDS (Non-Steroidal Allergy Severe Swelling Verified 10/05/18 12:59 Anti-Inflamma Of Face,Lips,& Throat Penicillins Allergy Severe Swelling Verified 10/05/18 12:59 Of Face,Lips,& Throat amoxicillin Allergy Intermediate Rash Verified 10/05/18 12:59 ramipril Allergy Intermediate Coughing Verified 10/05/18 12:59 PMH/Surg Hx/FS Hx/Imm Hx Endocrine/Hematology History: Denies: Hx Diabetes, Hx Anemia Cardiovascular History: Reports: Hx Coronary Artery Disease, Hx Hypertension - controlled with meds, Hx Valvular Heart Disease, Other Cardiovascular Problems/ Disorders - LVH, a fib Respiratory History: Reports: Hx Asthma, Hx Chronic Obstructive Pulmonary Disease (COPD), Hx Pneumonia - possible Comment Only: Other Respiratory Problems/Disorders - HYPERREACTIVE AIRWAY GI History: Reports: Hx Gastroesophageal Reflux Disease, Other GI Disorders - hx of gastroparesis Denies: Hx Jaundice History: Reports: Other Problems/Disorders - UTI Denies: Hx Dialysis, Hx Renal Disease Musculoskeletal History: Reports: Hx Arthritis - R SHOULDER, osteoporosis, Hx Osteoporosis, Other Musculoskeletal History - Bilat hip replacements, Bilat knee replacements Sensory History: Reports: Hx Contacts or Glasses - reading only Denies: Hx Hearing Aid Opthamlomology History: Reports: Hx Contacts or Glasses - reading only Neurological History: Denies: Hx Seizures, Hx Transient Ischemic Attacks (TIA) - Cancer History Cancer Type, Location and Year: breast CA Hx Chemotherapy: No - radiation - Surgical History Surgery Procedure, Year, and Place: bilat THAs. Bilat knees. Appy. R breast lumpectomy with no lymph node involvement. both eye cataracts with IOL Hx Anesthesia Reactions: No Infectious Disease History: No Infectious Disease History: Denies: Traveled Outside the [place] in Last 30 Days - Family History Known Family History: Positive: Other - Prostate CA - Social History Alcohol Use: None Hx Substance Use: No Substance Use Type: Reports: None Hx Tobacco Use: No Smoking Status (MU): Former Smoker Amount Used/How Often: smoked for 50 years 1/4-1/2ppd Review of Systems Positive: Fatigue Positive: Cough - chronic Gastrointestinal: Other - positive - abdominal soreness Positive: Nausea Neurological: Other - positive - "unresponsiveness" All Other Systems Reviewed And Are Negative: Yes Physical Exam - Summary Physical Exam Summary: Constitutional: Well-developed, Well-nourished, Alert. (-) Distressed Skin: Warm, Dry HENT: Normocephalic; Atraumatic Eyes: Conjunctiva normal Neck: Musculoskeletal ROM normal neck. (-) JVD, (-) Stridor, (-) Tracheal deviation Cardio: Rhythm regular, rate normal, Heart sounds normal; Intact distal pulses; The pedal pulses are 2+ and symmetric. Radial pulses are 2+ and symmetric. Pulmonary/Chest wall: Effort normal. Lungs CTA. (-) Respiratory distress, (-) Wheezes, (-) Rales Abd: Soft, (-) tenderness, (-) Distension, (-) Guarding, (-) Rebound Musculoskeletal: (-) Edema, (-) Calf Tenderness Neuro: Alert, Oriented x3, GCS 15. Psych: Mood and affect Normal Triage Information Reviewed: Yes Vital Signs On Initial Exam: Initial Vitals Temp Pulse Resp BP Pulse Ox 98.1 F 89 20 148/84 99 10/07/18 01:24 10/07/18 01:24 10/07/18 01:24 10/07/18 01:24 10/07/18 01:24 Vital Signs Reviewed: Yes Diagnostics - Vital Signs Vital Signs Temp Pulse Resp BP Pulse Ox 10/07/18 02:29 98 20 100 10/07/18 01:24 98.1 F 89 20 148/84 99 - Laboratory Lab Results: Lab Results 10/07/18 10/07/18 10/07/18 Range/Units 01:30 01:40 01:40 WBC 10.6 (3.5-10.8) 10^3/uL RBC 3.69 L (3.70-4.87) 10^6 /uL Hgb 10.6 L (12.0-16.0) g/dL Hct 32 L (35-47) % MCV 85 (80-97) fL MCH 29 (27-31) pg MCHC 34 (31-36) g/dL RDW 15 (10-15) % Plt Count 398 (150-450) 10^3/uL MPV 6.3 L (7.4-10.4) fL Neut % (Auto) 88.2 % Lymph % (Auto) 6.3 % [place] % (Auto) 5.3 % Eos % (Auto) 0.0 % Baso % (Auto) 0.2 % Absolute Neuts (auto) 9.4 H (1.5-7.7) 10^3/ul Absolute Lymphs (auto) 0.7 L (1.0-4.8) 10^3/ul Absolute Monos (auto) 0.6 (0-0.8) 10^3/ul Absolute Eos (auto) 0.0 (0-0.6) 10^3/ul Absolute Basos (auto) 0.0 (0-0.2) 10^3/ul Absolute Nucleated RBC 0.0 10^3/ul Nucleated RBC % 0.0 Sodium 122 L D (135-145) mmol/L Potassium 4.2 (3.5-5.0) mmol/L Chloride 90 L (101-111) mmol/L Carbon Dioxide 21 L (22-32) mmol/L Anion Gap 11 (2-11) mmol/L BUN 15 (6-24) mg/dL Creatinine 0.73 (0.51-0.95) mg/dL Est GFR ( Amer) 91.9 (>60) Est GFR (Non-Af Amer) 76.0 (>60) BUN/Creatinine Ratio 20.5 H (8-20) Glucose 140 H (70-100) mg/dL Lactic Acid (0.5-2.0) mmol/L Calcium 9.7 (8.6-10.3) mg/dL Total Bilirubin 0.70 (0.2-1.0) mg/dL Direct Bilirubin 0.10 (0.03-0.18) mg/dL Indirect Bilirubin 0.6 (0.3-1.0) mg/dL AST 36 (13-39) U/L ALT 30 (7-52) U/L Alkaline Phosphatase 173 H (34-104) U/L Troponin I 0.01 (<0.04) ng/mL Total Protein 6.8 (6.4-8.9) g/dL Albumin 3.9 (3.2-5.2) g/dL Globulin 2.9 (2-4) g/dL Albumin/Globulin Ratio 1.3 (1-3) Lipase 17 (11.0-82.0) U/L Urine Color Colorless Urine Appearance Clear Urine pH 8.0 (5-9) Ur Specific [place] 1.004 L (1.010-1.030) Urine Protein Negative (Negative) Urine Ketones Negative (Negative) Urine Blood 2+ A (Negative) Urine Nitrate Negative (Negative) Urine Bilirubin Negative (Negative) Urine Urobilinogen Negative (Negative) Ur Leukocyte Esterase Negative (Negative) Urine WBC (Auto) Absent (Absent) Urine RBC (Auto) Trace(0-2/hpf) (Absent) Urine Bacteria Absent (Absent) Urine Glucose Negative (Negative) 10/07/18 Range/Units 01:40 WBC (3.5-10.8) 10^3/uL RBC (3.70-4.87) 10^6 /uL Hgb (12.0-16.0) g/dL Hct (35-47) % MCV (80-97) fL MCH (27-31) pg MCHC (31-36) g/dL RDW (10-15) % Plt Count (150-450) 10^3/uL MPV (7.4-10.4) fL Neut % (Auto) % Lymph % (Auto) % [place] % (Auto) % Eos % (Auto) % Baso % (Auto) % Absolute Neuts (auto) (1.5-7.7) 10^3/ul Absolute Lymphs (auto) (1.0-4.8) 10^3/ul Absolute Monos (auto) (0-0.8) 10^3/ul Absolute Eos (auto) (0-0.6) 10^3/ul Absolute Basos (auto) (0-0.2) 10^3/ul Absolute Nucleated RBC 10^3/ul Nucleated RBC % Sodium (135-145) mmol/L Potassium (3.5-5.0) mmol/L Chloride (101-111) mmol/L Carbon Dioxide (22-32) mmol/L Anion Gap (2-11) mmol/L BUN (6-24) mg/dL Creatinine (0.51-0.95) mg/dL Est GFR ( Amer) (>60) Est GFR (Non-Af Amer) (>60) BUN/Creatinine Ratio (8-20) Glucose (70-100) mg/dL Lactic Acid 1.3 (0.5-2.0) mmol/L Calcium (8.6-10.3) mg/dL Total Bilirubin (0.2-1.0) mg/dL Direct Bilirubin (0.03-0.18) mg/dL Indirect Bilirubin (0.3-1.0) mg/dL AST (13-39) U/L ALT (7-52) U/L Alkaline Phosphatase (34-104) U/L Troponin I (<0.04) ng/mL Total Protein (6.4-8.9) g/dL Albumin (3.2-5.2) g/dL Globulin (2-4) g/dL Albumin/Globulin Ratio (1-3) Lipase (11.0-82.0) U/L Urine Color Urine Appearance Urine pH (5-9) Ur Specific [place] (1.010-1.030) Urine Protein (Negative) Urine Ketones (Negative) Urine Blood (Negative) Urine Nitrate (Negative) Urine Bilirubin (Negative) Urine Urobilinogen (Negative) Ur Leukocyte Esterase (Negative) Urine WBC (Auto) (Absent) Urine RBC (Auto) (Absent) Urine Bacteria (Absent) Urine Glucose (Negative) Result Diagrams: 10/07/18 01:40 10/07/18 05:00 Lab Statement: Any lab studies that have been ordered have been reviewed, and results considered in the medical decision making process. - CT BRAIN CT CT Interpretation Completed By: Radiologist Summary of CT Findings: IMPRESSION: No acute intracranial abnormality. THIS REPORT WAS REVIEWED BY DR. HADDAD. Re-Evaluation - Re-Evaluation First Eval Re-Evaluation Time: 02:05 Comment: Sodium of 122 is noted. UA to be obtained Second Eval Re-Evaluation Time: 02:34 Comment: reports elevated BP of 190 systolic. Third Eval Re-Evaluation Time: 04:42 Comment: Called to patient's bedside for seizure-like activity. Confirmed patient was having grand mal tonic clonic. Airway is not compromised but patient is tongue-biting. 2.5 mg Versed to be given. However, patient had spontaneous resolution of seizure prior to administration of benzodiazepine. Fourth Eval Re-Evaluation Time: 04:56 Comment: Dr. West paged as patient had already been admitted to her services, COLD PRESS OPERATOR returned call. COLD PRESS OPERATOR to get Dr. West. Fifth Eval Re-Evaluation Time: 04:59 Comment: Patient's seizure was discussed with Dr. West. Patient to be given 100 mls of 3% hypertonic saline. Seizure precautions in place. Brain CT to be obtained. Complex Multi-Symp Course/Dx Course Of Treatment: Patient is a 83 y/o F presenting to ED via EMS with complaints of nausea that suddenly onset today, 10/07/18, around midnight. Daughter also reports that the patient had a 1-2 minute episode of "unresponsiveness", stating that she slumped over, her eyes were closed, and she was not responding to her name. This spontaneously resolved. Patient had been evaluated at [facility] for a syncopal episode on 10/05/18. Patient was admitted and discharged on 10/06/18. During inpatient stay, patient's sodium increased from 129 to 132. She had an echo done that appeared normal. notes that the patient has been drinking two quarts of water daily. Lungs are clear, there is no calf tenderness. Sodium was 122. Creatinine is normal, UA is not suggestive of UTI, but is suggestive of significant of dilution which is consistent with clinical suspition of polydipsia. Patient was given Zofran, duoneb, Pepcid, tessalon, and lactated ringers bag. Patient's case was discussed with Dr. West, Dr. West accepts for admission. Family later called provider to patient's bedside for seizure-like activity. Confirmed patient was having grand mal tonic clonic. Airway is not compromised but patient is tongue- biting. 2.5 mg Versed to be given. However, patient had spontaneous resolution of seizure prior to administration of benzodiazepine. Patient's seizure was discussed with Dr. West. Patient to be given 100 mls of 3% hypertonic saline. Seizure precautions in place. Brain CT obtained and negative. - Diagnoses Provider Diagnoses: Hyponatremia, Seizure - Physician Notifications Discussed Care Of Patient With: Carina West Time Discussed With Above Provider: 02:44 Instructed by Provider To: Other - Patient's case was discussed with Dr. West, Dr. West accepts for admission. - Critical Care Time Critical Care Time: 30-74 min - 30 minutes Discharge - Sign-Out/Discharge Documenting (check all that apply): Patient Departure - admit All imaging exams completed and their final reports reviewed: Yes Patient Received Moderate/Deep Sedation with Procedure: No - Discharge Plan Condition: Stable Disposition: ADMITTED TO [facility] - Billing Disposition and Condition Condition: STABLE Disposition: Admitted to [facility] - Attestation Statements Document Initiated by Scribe: Yes Documenting Scribe: KATHI CAMACHO Provider For Whom Scribe is Documenting (Include Credential): NIURKA HADDAD MD Scribe Attestation: I, KATHI CAMACHO, scribed for NIURKA HADDAD MD on 10/07/18 at 0651. Scribe Documentation Reviewed: Yes Provider Attestation: The documentation as recorded by the KATHI benavides accurately reflects the service I personally performed and the decisions made by me, NIURKA HADDAD MD Status of Scribkalyani Document: Viewed
[2018-10-07] MEDS ORDERED: Acetaminophen TAB* 325 MG PO PRN (03:40)
[2018-10-07] MEDS ORDERED: Ondansetron INJ* 2 MG/ML VIAL IV PRN (03:40)
[2018-10-07] MEDS ORDERED: Al Hydrox/Mg Hydrox/Simet LIQ* 30 ML UDC PO PRN (03:40)
[2018-10-07] MEDS ORDERED: Mometasone 220 MCG MDI INH PRN (03:43)
[2018-10-07] MEDS ORDERED: Acetaminophen / Codeine* #3 (300 MG/30 MG) TAB PO ONE (03:46)
[2018-10-07] MEDS ORDERED: Midazolam* 1 MG/ML 5 ML VIAL (5 MG) ONE (04:43)
[2018-10-07] MEDS ORDERED: LORazepam INJ* 2 MG/ML 1 ML VIAL ONE (04:43)
[2018-10-07] MEDS ORDERED: Lorazepam PYXIS KEY ONE ×2 (04:43→05:13)
[2018-10-07] MEDS ORDERED: Midazolam* 1 MG/ML 5 ML VIAL (5 MG) IV SLOW PU ONE (04:45)
[2018-10-07] MEDS ORDERED: Sodium Chloride 3% HYPERTONIC* 500 ML IV ONE (04:48)
[2018-10-07] MEDS ORDERED: HYPERTONIC IV ONE ×2 (04:48→06:04)
[2018-10-07] MEDS ORDERED: SODIUM CHLORIDE 3% IV ONE ×2 (04:48→06:04)
[2018-10-07] MEDS ORDERED: Lorazepam PYXIS KEY PRN (05:20)
[2018-10-07] MEDS ORDERED: LORazepam INJ* 2 MG/ML 1 ML VIAL IV PUSH PRN (05:20)
--- NOTE | 2018-10-07 05:23 | HP ---
CC: Dr. Anali Klein * HISTORY AND PHYSICAL: DATE OF ADMISSION: 10/07/18 PRIMARY CARE PROVIDER: Dr. Anali Klein. CHIEF COMPLAINT: Nausea and vomiting. HISTORY OF PRESENT ILLNESS: Josette Rangel is an 83-year-old female who was just discharged on 10/06/18 after a syncopal episode. It was thought that maybe she was slightly dehydrated at that point after teeth extraction a few days prior. She stated that she went home and she did okay until she developed severe nausea and the feeling of the need to urinate, but no pain with urination and no burning. She also had 1 loose bowel movement. After she presented to the ED , she actually vomited a couple of times. During the evaluation in the ED, she was noted to have a sodium of 122. The patient's family stated that she drinks approximately 3 L of water a day. They "doubt she is dehydrated." The patient has a history of hyponatremia in the past and used to be on salt tablets many years ago. She is going to be placed on overnight observation with diagnosis of nausea and hyponatremia. PAST MEDICAL HISTORY: 1. History of asthma and COPD with chronic cough. 2. Gastroesophageal reflux disease. 3. Allergic rhinitis. 4. Hypertension. 5. Osteoporosis. 6. Knee replacement. 7. History of gastroparesis. 8. History of a period of atrial fibrillation in 2003 and in 2004. 9. Hyperlipidemia. 10. History of endometrial hyperplasia. 11. Uterine fibroids. PAST SURGICAL HISTORY: 1. Status post bilateral knee replacements. 2. Lumpectomy from breast carcinoma in 1985. 3. Bilateral hip replacements. 4. Appendectomy. 5. Cervical polyp removal. MEDICATIONS: At home include: 1. Vitamin C 500 mg daily. 2. Vitamin D 2000 units daily. 3. Avapro 150 mg daily. 4. Xyzal 5 mg daily. 5. Teriparatide 20 mcg subcutaneously q.p.m. 6. Incruse Ellipta 1 inhalation daily. 7. Multivitamin 1 capsule b.i.d. 8. Amlodipine 2.5 mg daily. 9. Dymista 1 spray both nostrils b.i.d. 10. Qvar 80 mcg 2 puffs inhalation b.i.d. 11. Symbicort 160/4.5 two puffs b.i.d. 12. Diltiazem CD 120 mg daily. 13. Magnesium oxide 400 mg daily. 14. Omeprazole 20 mg b.i.d. ALLERGIES: Include NONSTEROIDAL ANTIINFLAMMATORY MEDICATIONS, which cause facial swelling as well as ALTACE. AMOXICILLIN causes rash. ADDERALL causes facial swelling. FAMILY HISTORY: Positive for mother with COPD. Father at the age of 67 of prostate cancer. SOCIAL HISTORY: The patient quit smoking in the 1960s. She was a smoker at that point for 15 years. She denies any significant alcohol or drug use. The patient is . She lives in an apartment with her . Her is her surrogate. REVIEW OF SYSTEMS: Please see history of present illness. In addition to the above mentioned, the patient denies any abdominal pain. She is very tired due to her recent stay in the hospital. She denies any fevers. She denies any problems with urination, although she had a catheter placed in the ED when she felt that she "needed to urinate all the time." She has a chronic cough. All the remaining 12 systems reviewed with the patient and were, otherwise, negative. PHYSICAL EXAMINATION GENERAL APPEARANCE: The patient is a pleasant 83-year-old female who is in no acute distress. The patient is slightly hard of hearing, but she is otherwise alert and oriented x3. VITAL SIGNS: Blood pressure of 148/84, heart rate of 89 and regular, respiratory rate 20, oxygen saturation 99% on room air, temperature of 98.1. HEENT: Head atraumatic and normocephalic. Eyes: Pupils are equal, round, and reactive to light and accommodation. Oropharynx clear. Mucosa moist. NECK: Supple. No JVD. No bruits bilaterally. RESPIRATORY: Coarse breath sounds bilaterally. No wheezes. CARDIOVASCULAR: Regular rate and rhythm. No murmurs. ABDOMEN: Soft, nontender. Bowel sounds present in all 4 quadrants. EXTREMITIES: Lower extremities: There is no edema. Pulses are +2 bilaterally. No clubbing or cyanosis. NEUROLOGIC: Speech is clear. Cranial nerves II through XIII grossly intact. Motor strength is 5/5 bilaterally. DIAGNOSTIC STUDIES/LAB DATA: Laboratory Data: Urinalysis showed colorless urine with specific gravity of 1.004. White blood cell count of 10.6, hemoglobin of 10.6, hematocrit of 32, and platelets of 398. Sodium of 122, potassium 0.2, chloride 90, carbon dioxide 21, BUN 15, creatinine of 0.73. Liver function tests unremarkable, apart from alkaline phosphatase of 173. Lactic acid of 1.3. Please note the patient's alkaline phosphatase had been increased dating back to 2012, when it was at the patient' s baseline. ASSESSMENT AND PLAN: 1. Nausea and vomiting. The patient received Zofran, Pepcid, and Tessalon and currently, she is not nauseated anymore. We will discuss the possibility of restarting the patient slowly on a clear liquid diet, but she actually would prefer to be able to choose from the options of a regular diet. She is aware of the fact that she should start slow with a rather limited diet. For the time being, as per the patient's request, she is going to be placed on a regular diet. 2. Hyponatremia. The patient is hypokalemic and hyponatremic. This does indicate possibly dehydration due to her history of vomiting, but she also has a history of likely syndrome of inappropriate antidiuretic hormone secretion since she was on salt tablets in the past. Nevertheless, she received lactated Ringer of 1000 mL total in the ED. At this point, I will withhold any intravenous hydration, place the patient on a regular diet, get a basic metabolic panel of approximately 4 hours, and observe. I will also check urine studies for urine sodium and urine osmolality that are pending. 3. In regards to the patient's asthma with predominant cough, I am going to give her a dose of Tylenol with Codeine x1 and see if it will bring her relief so she is able to sleep tonight. 4. For DVT prophylaxis, the patient is going to be placed on heparin subcutaneously. 5. The patient's code status is full and her surrogate is her . TIME SPENT: Approximately 62 minutes were spent on the admission of this patient, more than half that time was spent [id number] with the patient doing the interview and physical exam. [id number]/[facility] #: [id number] CHARLEI
[2018-10-07 05:32] LABS: BUN/Creatinine Ratio 16.5 (8-20); Blood Urea Nitrogen 13 mg/dL (6-24); Calcium 8.6 mg/dL (8.6-10.3); Chloride 91 mmol/L (101-111); EGFR African American 83.9 (>60); EGFR Non-African American 69.3 (>60); Glucose 168 mg/dL (70-100); Sodium 124 mmol/L (135-145)
[2018-10-07 05:37] LABS: Anion Gap 19 mmol/L (2-11); CO2 Carbon Dioxide 14 mmol/L (22-32)
--- NOTE | 2018-10-07 06:02 | PN ---
Progress Note - Progress Note Date of Service: 10/07/18 Note: Pt had a generalized tonic clonic seizure when still in ED at 5 AM. Received 2.5 mg of Versed IV, then noted to be sedated, but not seizing. She bit her tongue. Plan to tx with 100 ml of 3% NS and consult fleet service clerk. F/u BMP pending
--- NOTE | 2018-10-07 10:07 | PN ---
Date of Service: 10/14/18 Critical Care Services: brought to ICU for seizures. Had seizure in setting hyponatremia in the ED. No hx of seizures. Had been having N/V and LOC recently and assumed dehyrdation. Was previously on salt tabs for hyponatremia Na during seizure 122. 8/15 Na 132. Has been running S Na low 130's past 6-8 months CTH negative in the ED. No further Seizures Vital Signs: Temp Pulse Resp BP SpO2 FiO2 99.1 F 74 16 131/68 98 10/07/18 07:09 10/07/18 09:30 10/07/18 09:00 10/07/18 09:30 10/07/18 09:30 Physical Exam: Gen: NAD HEENT:EOMI Lungs:CTA B/L Cardiac: RRR Abdomen:+ BS's, Soft, NTP Extremities: No CRISTIAN Neuro: No focal deficits Fluid Balance (Past 24 Hours): I= O= Net Intake & Output 10/05/18 10/06/18 10/07/18 10/08/18 06:59 06:59 06:59 06:59 Intake Total 1100 0 Balance 1100 0 Weight 99 lb 10.383 oz Intake: IV Fluids 1100 Oral 0 Other: Date of Last Bowel 10/07/18 Movement Labs: Laboratory Results - last 24 hr 10/07/18 10/07/18 10/07/18 01:30 01:40 01:40 WBC 10.6 RBC 3.69 L Hgb 10.6 L Hct 32 L MCV 85 MCH 29 MCHC 34 RDW 15 Plt Count 398 MPV 6.3 L Neut % (Auto) 88.2 Lymph % (Auto) 6.3 [place] % (Auto) 5.3 Eos % (Auto) 0.0 Baso % (Auto) 0.2 Absolute Neuts (auto) 9.4 H Absolute Lymphs (auto) 0.7 L Absolute Monos (auto) 0.6 Absolute Eos (auto) 0.0 Absolute Basos (auto) 0.0 Absolute Nucleated RBC 0.0 Nucleated RBC % 0.0 Sodium 122 L D Potassium 4.2 Chloride 90 L Carbon Dioxide 21 L Anion Gap 11 BUN 15 Creatinine 0.73 Est GFR ( Amer) 91.9 Est GFR (Non-Af Amer) 76.0 BUN/Creatinine Ratio 20.5 H Glucose 140 H Lactic Acid Calcium 9.7 Total Bilirubin 0.70 Direct Bilirubin 0.10 Indirect Bilirubin 0.6 AST 36 ALT 30 Alkaline Phosphatase 173 H Troponin I 0.01 Total Protein 6.8 Albumin 3.9 Globulin 2.9 Albumin/Globulin Ratio 1.3 Lipase 17 Urine Color Colorless Urine Appearance Clear Urine pH 8.0 Ur Specific [place] 1.004 L Urine Protein Negative Urine Ketones Negative Urine Blood 2+ A Urine Nitrate Negative Urine Bilirubin Negative Urine Urobilinogen Negative Ur Leukocyte Esterase Negative Urine WBC (Auto) Absent Urine RBC (Auto) Trace(0-2/hpf) Urine Bacteria Absent Urine Osmolality U Sodium Concentration Urine Glucose Negative 10/07/18 10/07/18 10/07/18 01:40 03:27 03:27 WBC RBC Hgb Hct MCV MCH MCHC RDW Plt Count MPV Neut % (Auto) Lymph % (Auto) [place] % (Auto) Eos % (Auto) Baso % (Auto) Absolute Neuts (auto) Absolute Lymphs (auto) Absolute Monos (auto) Absolute Eos (auto) Absolute Basos (auto) Absolute Nucleated RBC Nucleated RBC % Sodium Potassium Chloride Carbon Dioxide Anion Gap BUN Creatinine Est GFR ( Amer) Est GFR (Non-Af Amer) BUN/Creatinine Ratio Glucose Lactic Acid 1.3 Calcium Total Bilirubin Direct Bilirubin Indirect Bilirubin AST ALT Alkaline Phosphatase Troponin I Total Protein Albumin Globulin Albumin/Globulin Ratio Lipase Urine Color Urine Appearance Urine pH Ur Specific [place] Urine Protein Urine Ketones Urine Blood Urine Nitrate Urine Bilirubin Urine Urobilinogen Ur Leukocyte Esterase Urine WBC (Auto) Urine RBC (Auto) Urine Bacteria Urine Osmolality 259 U Sodium Concentration 88 Urine Glucose 10/07/18 05:00 WBC RBC Hgb Hct MCV MCH MCHC RDW Plt Count MPV Neut % (Auto) Lymph % (Auto) [place] % (Auto) Eos % (Auto) Baso % (Auto) Absolute Neuts (auto) Absolute Lymphs (auto) Absolute Monos (auto) Absolute Eos (auto) Absolute Basos (auto) Absolute Nucleated RBC Nucleated RBC % Sodium 124 L Potassium TNP Chloride 91 L Carbon Dioxide 14 L* Anion Gap 19 H BUN 13 Creatinine 0.79 Est GFR ( Amer) 83.9 Est GFR (Non-Af Amer) 69.3 BUN/Creatinine Ratio 16.5 Glucose 168 H Lactic Acid Calcium 8.6 Total Bilirubin Direct Bilirubin Indirect Bilirubin AST ALT Alkaline Phosphatase Troponin I Total Protein Albumin Globulin Albumin/Globulin Ratio Lipase Urine Color Urine Appearance Urine pH Ur Specific [place] Urine Protein Urine Ketones Urine Blood Urine Nitrate Urine Bilirubin Urine Urobilinogen Ur Leukocyte Esterase Urine WBC (Auto) Urine RBC (Auto) Urine Bacteria Urine Osmolality U Sodium Concentration Urine Glucose Impression: Seizures in setting hyponatremia in setting N/V/dehydration Plan: continue to monitor S Na q8 Recheck Urine Na and Urine Osm Hold IVFs now. Repeat BMP's pending Will check EEG Patient not on any apparent medications that can lead to hyponatremia Benzo's PRN for seizures Critical Care Time: 45
[2018-10-07] MEDS: Azelastine/Fluticasone 137-50 MCG BTL (NF) BOTH NARES SCH ×2 (10:18→20:06)
[2018-10-07] MEDS: Magnesium Oxide TAB* 400 MG PO SCH (10:19)
[2018-10-07] MEDS: Diltiazem CD CAP* 120 MG PO SCH (10:19)
[2018-10-07] MEDS: Pantoprazole TAB * 40 MG TAB PO SCH ×2 (10:19→20:02)
[2018-10-07] MEDS: Heparin VIAL(*) 5000 UNITS/ML VIAL (FIVE THOUSAND) SUBCUT SCH ×3 (10:24→21:27)
[2018-10-07] MEDS: Mometasone/Formoter 200/5 MDI INH SCH ×2 (10:32→21:27)
[2018-10-07 10:37] LABS: BUN/Creatinine Ratio 16.9 (8-20); Calcium 8.4 mg/dL (8.6-10.3); EGFR African American 105.1 (>60); EGFR Non-African American 86.8 (>60)
[2018-10-07 10:40] LABS: Magnesium 1.8 mg/dL (1.9-2.7); Phosphorus 2.7 mg/dL (2.5-5.0)
--- NOTE | 2018-10-07 13:45 | CONS ---
CC: Dr. Anali Klein* CONSULTATION REPORT: DATE OF CONSULT: 10/07/18 LOCATION: She is currently in ICU, bed 7. ADMITTING PHYSICIAN: Dr. Anali Klein. REASON FOR CONSULT: Seizure. HISTORY OF PRESENT ILLNESS: Ms. Rangel is a very nice 83-year-old female. Her history was supplemented by family at the bedside. She has a significant cardiac history with hypertension; paroxysmal atrial fibrillation years ago, none recently; grade 1 diastolic dysfunction, followed by Cardiology; COPD who was admitted to the hospital on 10/05/18. At that time the day of admission around noon, she had just eaten lunch; when she sat down in a chair, she suddenly became unresponsive. The daughter, who was with her, states that she noted some dizziness prior to sitting down and then she slumped over. She did not fall out of the chair. There was no stiffening noted, but she did say that her left arm might have been shaking slightly. At that time, there was no tongue biting, there was no bladder or bowel incontinence. It lasted approximately 1 to 2 minutes, and afterwards, she was not confused. She came back to her normal self, was joking. At that time, there was no reported headaches, chest pain, shortness of breath, nausea or vomiting, and no reported focal neurologic signs including no numbness or tingling, focal weakness, vision changes. The day prior, she had had 4 teeth extracted. At that time, she got lidocaine injections. Apparently, she has not been eating well and she had not been sleeping well, and she also has a history of some hyponatremia in the distant past. She drinks quite a bit of water every day. Finally, she had been taking her 's gabapentin for several days prior to the event. At the time of admission, she was taking apparently 600 twice a day. She was taking this apparently for her COPD as she had read an article about it. She was discharged home on 10/06/18 in stable condition. She stayed the night in the hospital and sodium was noted to be 132, initially when she was admitted 129. At that time, she had a chest x-ray which showed chronic obstructive lung disease and some patchy interstitial markings. In addition, she had an echocardiogram done during that hospitalization, which showed an EF of 50% to 55 %, grade 1 diastolic dysfunction, some valvular disease including moderate aortic stenosis. Compared to prior, left ventricular chamber size decreased, aortic stenosis progressed, tricuspid regurg increased. She was hydrated. It was felt that her episode was likely syncopal in nature and possibly related to the gabapentin, which she was instructed to stop, also possibly related to the fact that she had not been sleeping well and that she had not been drinking as much as she normally did with some volume depletion. She was sent home on her normal medications save for the gabapentin which was not prescribed for her. Last night at around midnight, her states that she woke up making a gurgling noise, she had urinated in the bed which was very unusual for her. She got up, was very dizzy. She needed to go to the bathroom and went to the bathroom and had to urinate multiple times. She had nausea and vomiting, which her states was severe. He ended up bringing her into the hospital due to the nausea and vomiting. In the ED, she vomited as well and it was noted at that time that she had a sodium of 122. Given her recent admission, her sodium drop, and her recent syncopal episode, she was admitted to the hospital for further evaluation. At around 5 a.m. this morning, the daughter was at the bedside when she had a tonic-clonic seizure lasting 1 to 2 minutes. Versed was given. Apparently, she was rigid and then relaxed afterwards. She did bite her tongue on the right side. There was no bowel incontinence. She had a Goldstein in place. The imaging scheduler was consulted as well. She did have a brain CT at around that time that showed no acute changes. Films reviewed. Atrophy is present. No hemorrhage present. Ventricles appeared to be normal in size. Subsequent sodium has went from 122 to 124, most recently 129. I was consulted for her seizure activity. There has been no reported history of any seizures. No history of severe head trauma or loss of consciousness. No family history of seizures that the family is aware of. No history of meningitis or CONTACT [employer]SEM[employer] infection. No history of complications. To the family's knowledge, this was the first seizure that she had ever had. Currently, she is returning back to baseline, although she appears to be somewhat confused. The family is concerned because she is still confused now 4 to 5 hours after the event. She is awake and she is pleasant and answering questions. She denies any headache, recent travel, insect or animal bites, she has not been out of the country, there have been no sick contacts. She has no neck pain or meningismus. No photophobia. No falls with head trauma reported. PAST MEDICAL HISTORY: As noted above. In addition, she has a history of breast cancer, status post lumpectomy with lymph node dissection in the past. She also has a history of GERD; allergic rhinitis; osteoporosis; bilateral knee replacements, during which time she had some issues with hyponatremia as well; history of gastroparesis; hyperlipidemia; uterine fibroids; as noted, COPD; hypertension. PAST SURGICAL HISTORY: Includes bilateral knee replacement, lumpectomy in 1985 , bilateral hip replacements, appendectomy, cervical polyps removed. ALLERGIES: She has allergies to NONSTEROIDAL ANTI-INFLAMMATORY MEDICATIONS causing facial swelling, ALTACE, AMOXICILLIN, ADDERALL. FAMILY HISTORY: Significant for COPD and prostate cancer in her father. No history of strokes or seizures that the family is aware of. SOCIAL HISTORY: She smoked in the distant past, but none since . She had a 15-year pack history prior. No alcohol or drug use reported. She lives with her and her is the surrogate decision maker. REVIEW OF SYSTEMS: In 14-organ systems as noted above, otherwise negative. PHYSICAL EXAM: Temperature largely afebrile, she did have one reading of 99.1 at approximately 7:00 This morning. Heart rate in the 70s, respiratory rate in 16, pulse ox of 98% to 100%, blood pressure 148/71 to 144/76 to 131/68. In general, she is a well developed thin female, in no acute distress, sitting in her hospital bed. She is pleasant, well dressed, well groomed. Her family is at the bedside including her and 2 twin daughters. HEENT: She is normocephalic, atraumatic. Sclerae are anicteric. Mucous membranes are moist. She does have a tongue laceration on the right side. Her oropharynx appears clear. Neck is supple. No thyromegaly. No carotid bruits. No meningismus. Chest: Clear to auscultation bilaterally. Cardiovascular: Regular rate and rhythm without murmurs. Abdomen is scaphoid, nontender. Extremities: No clubbing, cyanosis, or edema is appreciated. Skin is warm and dry. On neurologic exam, she is awake, alert. She is oriented to person, [facility], but had trouble with the date. She was aware of her family. Speech is fluent. There is no dysarthria. Repetition is intact. Recall is impaired. Vocabulary appears intact. Her mood is dysthymic. Affect, mood congruent. Cranial Nerves: Pupils are equally round and reactive to light and accommodation. Extraocular muscles are intact without nystagmus or ptosis. Visual milan appear full. Sensation is intact bilaterally. Face appears symmetric with possible slight ptosis of the left eyelid. Her hearing is intact bilaterally. Oropharynx raises symmetrically, tongue is midline. Motor Exam: Spontaneously moving all extremities antigravity. She has no drift apparent. She has 5/5 strength in the right upper extremity, left upper extremity, right lower extremity with some mild 4+/5 weakness proximally in the left lower extremity, otherwise 5/5. Her tone and bulk are both normal. Sensation is intact to light touch and pinprick, but no extinction. Finger-to- nose and rapid alternating movements are intact without tremor. There is no postural tremor or resting tremor appreciated. DTRs were 1+ and symmetric at the biceps, brachioradialis; trace at the patella bilaterally; absent at the ankles; equivocal Babinski's. DIAGNOSTIC STUDIES/LAB DATA: Imaging as noted above. Echo as noted above. Lab work: Most recently, sodium of 129, chloride of 96, glucose of 110, calcium of 8.4, magnesium 1.8, alk phos of 173. Troponin is 0.01. Blood sugars 140 to 168 to 110. Lactic acid 1.3. Urine shows specific gravity of 1.04, blood of 2+. INR 0.96. Complete metabolic profile: WBC of 10.6, hemoglobin of 10.6, hematocrit of 32, MPV of 6.3, lymphocytes of 0.7, absolute neutrophils of 9.4. ASSESSMENT: Ms. Rangel is a very nice 83-year-old female with a history of hypertension; history of chronic obstructive pulmonary disease; gastroesophageal reflux disease; history of prior atrial fibrillation years ago , none recently reported; hyperlipidemia; diastolic dysfunction; no prior seizure history presented to the hospital on 10/05/18 with what appeared to be a syncopal episode at that time and slightly low sodium. She did well overnight. Echocardiogram was reviewed and showed no obvious acute abnormalities. She was discharged home. Last night, she woke her up with some gurgling sounds having urinated in the bed, some profuse nausea and vomiting, brought to the ER. Sodium was noted to be 122. She does drink copious amounts of water normally. She subsequently had a generalized tonic- clonic seizure, the semiology is consistent at about 5 a.m. The family noticed that she had been taking gabapentin for 4 to 5 days prior. She was taking her 's medication. She stopped it on 10/06/18 at discharge from the hospital. She also has had intermittent p.o. intake perhaps not as much as she normally does. She had recent dental surgery the day prior to her 10/05/18 admission, and apparently, she has not been sleeping well. PLAN: Seizures. There is no doubt that she had a generalized tonic-clonic seizure this morning. My plan is to get an MRI of the brain with and without contrast. CT of the head was negative. I am also going to get an EEG. She presents with a very complicated picture. She had recent dental surgery. She drinks a lot of fluid, came in with a sodium that went from 129 to 122 overnight. She had had significant nausea and vomiting suggesting the possibility of an underlying GI illness. She had not been sleeping well. She had been taking her 's gabapentin and stopped taking it on 10/06/18. All of this suggests the possibility of a more provoked seizure picture. On the other hand, she comes in what sounds like 3 discrete episodes. On 10/05/18 , she had what was initially thought to be a syncopal episode, although the daughter report some mild shaking in her left hand, although the semiology is somewhat unclear and she was not confused afterwards. It also lasted for several minutes, but she did not fall to the ground, she was sitting in a chair. In addition, she had some episode last night where she woke her up, having had urinated in the bed which is unusual for her. Certainly, she could have been having a seizure prior to that and then she had the generalized tonic-clonic seizure this morning. Again, it is unclear whether these were provoked or not, but my threshold for starting her seizure medications at this point is lower based on her history. For now, I am going to hold on medication pending the MRI and the EEG. If either of those shows any abnormalities, I think I will certainly treat. I am inclined to start her on a low dose of medication, possibly Keppra, given the unusual nature of her symptoms, but we will hold pending the studies. If she has another seizure, obviously we will treat as well. I had a long discussion with the family, discussing the various aspects of her history, the confusing nature of her symptoms, and the fact that these could be provoked or they could be primary. We discussed the fact that it could be very difficult to tease out syncope from seizures at times and her presentation is not clear-cut for multiple seizures versus one seizure episode. We will follow up after her studies and make further recommendations. In addition, her sodium has been low which could be a contributing factor as well. The imaging scheduler and primary care provider are working to correct this, this could be related to excess fluid intake. It could be that it is a combination of multiple things that precipitated her seizures, in which case I would be less inclined to treat. I will keep you updated on further developments. Thank you for the opportunity to participate in her care. [id number]/[facility] #: [id number] CHARLIE
[2018-10-07] MEDS ORDERED: Gadoteridol* (CONTRAST) 279.3 MG/ML 10 ML IV ONE (14:10)
--- NOTE | 2018-10-07 15:12 | EEG ---
ELECTROENCEPHALOGRAPHY: DATE OF STUDY: 10/07/18 REQUESTING PROVIDER: Durga García. CLINICAL PROBLEM: Josette Rangel is an 83-year-old female who was discharged on after having an episode of syncope. The day she was discharged, she developed severe nausea and the feeling she needed to urinate. In the emergency room, she vomited a couple of times. Her sodium was 122. On 10/07/18 , at 4 a.m., she had a witnessed seizure. Her arms came up to her chest and she became very stiff. She did bite her tongue. It lasted a minute. She was given Versed. She is still very tired and has been sleeping a lot today. She has no memory for the event. REPORT: This was a 16-channel EEG. In the beginning of the record, there was high amplitude posterior rhythm approximately 7 Hz. It was symmetric. In the first part of the record, there was immediately a generalized change in the background rhythm with higher amplitude sharply contoured theta waves. As the record continued, there was repeat generalized sharply contoured theta lasting from one second to many seconds. In the beginning of these discharges, sharp waves were questioned. Between discharges, the background activity looked normal. There was superimposed movement artifact at times. During the recording, the posterior rhythm was as high as 9 Hz. She continued to have generalized discharges with high amplitude sharply contoured theta. During the record, there was no significant asymmetry to the background rhythm. There was no evidence of sharp or spike wave activity. There was an isolated sharp wave with phase reversal noted around the C3 electrode on the left side. This is the same region which was questioned to have some sharps prior to the generalized discharges. CLINICAL IMPRESSION: This was an abnormal EEG. There was intermittent generalized change to the background rhythm with sharply contoured theta and other times with sharp waves before the discharges that could last many seconds suggestive of epileptiform activity. At times, there were changes noted more significantly in the left hemisphere with sharp waves with phase reversal. Results were communicated to Dr. Romeo. [id number]/[facility] #: [id number] [facility]ITAL[facility]ianne
[2018-10-07 16:36] LABS: Calcium 8.9 mg/dL (8.6-10.3); EGFR African American 86.4 (>60); EGFR Non-African American 71.4 (>60); Potassium 3.8 mmol/L (3.5-5.0)
[2018-10-07 16:40] LABS: Activated Partial Thrombo Time 31.7 seconds (26.0-38.0); INR 0.96 (0.82-1.09)
[2018-10-07] MEDS ORDERED: levETIRAcetam TAB* 500 MG PO ONE (17:27)
[2018-10-07] MEDS: amLODIPine TAB* 5 MG PO SCH (17:52)
[2018-10-07] MEDS: levETIRAcetam TAB* 500 MG PO SCH (20:02)
[2018-10-07] MEDS: TERIPARATIDE SUBCUT SCH (20:02)
[2018-10-08 05:12] LABS: ABS Lymphocytes 1.4 10^3/ul (1.0-4.8); ABS Monocytes 0.8 10^3/ul (0-0.8); ABS Neutrophils 5.7 10^3/ul (1.5-7.7); Eosinophil % 0.3 %; Hematocrit 29 % (35-47); Hemoglobin 9.8 g/dL (12.0-16.0); Lymphocyte % 17.4 %; Mean Corpuscular HGB Conc 34 g/dL (31-36); Mean Corpuscular Hemoglobin 29 pg (27-31); Mean Corpuscular Volume 85 fL (80-97); Mean Platelet Volume 6.2 fL (7.4-10.4); Nucleated Red Blood Cells % 0.1; Platelet Count 355 10^3/uL (150-450); Red Blood Count 3.36 10^6 /uL (3.70-4.87); Red Cell Distribution Width 14 % (10-15); White Blood Count 7.9 10^3/uL (3.5-10.8)
[2018-10-08 05:29] LABS: Calcium 8.3 mg/dL (8.6-10.3); EGFR African American 96.5 (>60); EGFR Non-African American 79.7 (>60); Magnesium 1.9 mg/dL (1.9-2.7); Phosphorus 3.5 mg/dL (2.5-5.0); Potassium 3.9 mmol/L (3.5-5.0)
[2018-10-08] MEDS: Heparin VIAL(*) 5000 UNITS/ML VIAL (FIVE THOUSAND) SUBCUT SCH ×3 (06:17→21:46)
[2018-10-08] MEDS: levETIRAcetam TAB* 500 MG PO SCH ×2 (08:18→21:37)
[2018-10-08] MEDS: Magnesium Oxide TAB* 400 MG PO SCH (08:18)
[2018-10-08] MEDS: Pantoprazole TAB * 40 MG TAB PO SCH ×2 (08:18→21:39)
[2018-10-08] MEDS: Diltiazem CD CAP* 120 MG PO SCH (08:18)
[2018-10-08] MEDS: Azelastine/Fluticasone 137-50 MCG BTL (NF) BOTH NARES SCH ×2 (08:20→21:40)
--- NOTE | 2018-10-08 09:09 | PN ---
Date of Service: 10/08/18 Critical Care Services: Na slowly improving. Received yesterday 3% but stropped after 200 cc. S Na going up by self. Now at 132 No further seizures. EEG though + Vital Signs: Temp Pulse Resp BP SpO2 FiO2 96.5 F 79 13 146/68 95 10/08/18 07:27 10/08/18 08:00 10/08/18 08:00 10/08/18 08:00 10/08/18 08:00 Physical Exam: Gen: NAD HEENT: EOMI Lungs:CTA BL Cardiac: RRR Abdomen:+ BS, Soft, NTP Extremities: No CRISTIAN Neuro:No focal deficits Fluid Balance (Past 24 Hours): I= O= Net Intake & Output 10/06/18 10/07/18 10/08/18 10/09/18 06:59 06:59 06:59 06:59 Intake Total 1100 895 Output Total 2261 85 Balance 1100 -1366 -85 Weight 99 lb 10.383 oz 109 lb 2.061 oz Intake: IV Fluids 1100 IVPB 100 Oral 795 Output: Goldstein 2261 85 Other: Date of Last Bowel 10/07/18 10/07/18 Movement # Bowel Movements 1 Estimated Stool Amount Small ADLs: Meal Record Start: 10/07/18 05: 05 Freq: DAILY@0900,1400,1800 Status: Inactive Protocol: Created 10/07/18 05:05 System (Rec: 10/07/18 05:05 System [id number]) ADLs: Meal Record Start: 10/07/18 07: 09 Freq: 09,13,18 Status: Active Protocol: Created 10/07/18 07:09 [id number] (Rec: 10/07/18 07:09 [id number] ICU-C12) Document 10/07/18 09:00 [id number] (Rec: 10/07/18 10:17 [id number] ICU-M23) Document 10/07/18 16:00 [id number] (Rec: 10/07/18 17:24 [id number] ICU-M34) Document 10/07/18 18:00 [id number] (Rec: 10/07/18 19:01 [id number] ICU-M34) Intake and Output Start: 10/07/18 01: 27 Freq: Status: Inactive Protocol: Created 10/07/18 01:27 System (Rec: 10/07/18 01:27 System ED-C31) Intake and Output Start: 10/07/18 05: 05 Freq: DAILY@0600,1400,2200 Status: Inactive Protocol: Created 10/07/18 05:05 System (Rec: 10/07/18 05:05 System MEDL-C02) Intake and Output Start: 10/07/18 07: 09 Freq: Q1HR Status: Active Protocol: Created 10/07/18 07:09 [id number] (Rec: 10/07/18 07:09 [id number] ICU-C12) Document 10/07/18 08:00 [id number] (Rec: 10/07/18 08:28 [id number] ICU-C12) Document 10/07/18 09:00 [id number] (Rec: 10/07/18 14:58 [id number] ICU-C12) Document 10/07/18 10:00 [id number] (Rec: 10/07/18 14:58 [id number] ICU-C12) Document 10/07/18 11:00 [id number] (Rec: 10/07/18 14:58 [id number] ICU-C12) Document 10/07/18 12:00 [id number] (Rec: 10/07/18 14:58 [id number] ICU-C12) Document 10/07/18 13:00 [id number] (Rec: 10/07/18 14:58 [id number] ICU-C12) Document 10/07/18 14:00 [id number] (Rec: 10/07/18 16:02 [id number] ICU-C12) Document 10/07/18 17:00 [id number] (Rec: 10/07/18 17:11 [id number] ICU-M34) Document 10/07/18 18:00 [id number] (Rec: 10/07/18 19:00 [id number] ICU-M34) Document 10/07/18 19:00 [id number] (Rec: 10/07/18 20:43 [id number] ICU-C06) Document 10/07/18 20:00 [id number] (Rec: 10/07/18 20:44 [id number] ICU-C06) Document 10/07/18 21:00 [id number] (Rec: 10/07/18 21:33 [id number] ICU-M23) Document 10/07/18 22:00 [id number] (Rec: 10/07/18 23:06 [id number] ICU-C06) Document 10/07/18 23:00 [id number] (Rec: 10/07/18 23:06 [id number] ICU-C06) Document 10/08/18 00:00 [id number] (Rec: 10/08/18 00:52 [id number] ICU-C06) Document 10/08/18 00:52 [id number] (Rec: 10/08/18 00:52 [id number] ICU-C06) Document 10/08/18 02:00 [id number] (Rec: 10/08/18 03:29 [id number] ICU-C06) Document 10/08/18 03:00 [id number] (Rec: 10/08/18 03:29 [id number] ICU-C06) Document 10/08/18 03:59 [id number] (Rec: 10/08/18 03:59 [id number] ICU-C06) Document 10/08/18 05:00 [id number] (Rec: 10/08/18 05:05 [id number] ICU-C06) Document 10/08/18 06:00 [id number] (Rec: 10/08/18 06:09 [id number] ICU-C06) Document 10/08/18 07:00 [id number] (Rec: 10/08/18 07:25 [id number] ICU-M23) Labs: Laboratory Results - last 24 hr 10/07/18 10/07/18 10/07/18 01:40 10:05 10:34 WBC RBC Hgb Hct MCV MCH MCHC RDW Plt Count MPV Neut % (Auto) Lymph % (Auto) Mccreary % (Auto) Eos % (Auto) Baso % (Auto) Absolute Neuts (auto) Absolute Lymphs (auto) Absolute Monos (auto) Absolute Eos (auto) Absolute Basos (auto) Absolute Nucleated RBC Nucleated RBC % INR (Anticoag Therapy) APTT Sodium 122 L D 129 L Potassium 4.2 4.0 Chloride 90 L 96 L Carbon Dioxide 21 L 24 Anion Gap 11 9 BUN 15 11 Creatinine 0.73 0.65 Est GFR ( Amer) 91.9 105.1 Est GFR (Non-Af Amer) 76.0 86.8 BUN/Creatinine Ratio 20.5 H 16.9 Glucose 140 H 110 H Calcium 9.7 8.4 L Phosphorus 2.7 Magnesium 1.8 L Total Bilirubin 0.70 Direct Bilirubin 0.10 Indirect Bilirubin 0.6 AST 36 ALT 30 Alkaline Phosphatase 173 H Troponin I 0.01 Total Protein 6.8 Albumin 3.9 Globulin 2.9 Albumin/Globulin Ratio 1.3 Lipase 17 Urine Osmolality 278 U Sodium Concentration 10/07/18 10/07/18 10/07/18 10:34 16:09 16:09 WBC RBC Hgb Hct MCV MCH MCHC RDW Plt Count MPV Neut % (Auto) Lymph % (Auto) Mccreary % (Auto) Eos % (Auto) Baso % (Auto) Absolute Neuts (auto) Absolute Lymphs (auto) Absolute Monos (auto) Absolute Eos (auto) Absolute Basos (auto) Absolute Nucleated RBC Nucleated RBC % INR (Anticoag Therapy) 0.96 APTT 31.7 Sodium 130 L Potassium 3.8 Chloride 98 L Carbon Dioxide 25 Anion Gap 7 BUN 10 Creatinine 0.77 Est GFR ( Amer) 86.4 Est GFR (Non-Af Amer) 71.4 BUN/Creatinine Ratio 13.0 Glucose 108 H Calcium 8.9 Phosphorus Magnesium Total Bilirubin Direct Bilirubin Indirect Bilirubin AST ALT Alkaline Phosphatase Troponin I Total Protein Albumin Globulin Albumin/Globulin Ratio Lipase Urine Osmolality U Sodium Concentration 82 10/08/18 10/08/18 05:03 05:03 WBC 7.9 RBC 3.36 L Hgb 9.8 L Hct 29 L MCV 85 MCH 29 MCHC 34 RDW 14 Plt Count 355 MPV 6.2 L Neut % (Auto) 71.9 Lymph % (Auto) 17.4 Mccreary % (Auto) 10.0 Eos % (Auto) 0.3 Baso % (Auto) 0.4 Absolute Neuts (auto) 5.7 Absolute Lymphs (auto) 1.4 Absolute Monos (auto) 0.8 Absolute Eos (auto) 0.0 Absolute Basos (auto) 0.0 Absolute Nucleated RBC 0.0 Nucleated RBC % 0.1 INR (Anticoag Therapy) APTT Sodium 132 L Potassium 3.9 Chloride 100 L Carbon Dioxide 24 Anion Gap 8 BUN 14 Creatinine 0.70 Est GFR ( Amer) 96.5 Est GFR (Non-Af Amer) 79.7 BUN/Creatinine Ratio 20.0 Glucose 99 Calcium 8.3 L Phosphorus 3.5 Magnesium 1.9 Total Bilirubin Direct Bilirubin Indirect Bilirubin AST ALT Alkaline Phosphatase Troponin I Total Protein Albumin Globulin Albumin/Globulin Ratio Lipase Urine Osmolality U Sodium Concentration Impression: Hyponatremia c/b seizures Plan As S Na corrected, patient can most liklely go to floor. Would hold further IVF' s. AED's as per Neurology service. Patient already placed on Keppra If ok with PCP would transfer to floor with seizure precautions Plan: Critical Care Time:
[2018-10-08] MEDS: Mometasone/Formoter 200/5 MDI INH SCH ×3 (10:07→19:42)
[2018-10-08] MEDS: SPIRIVA Respimat* (tiotropium) 2.5 mcg/inh Inhaler INH SCH (14:11)
--- NOTE | 2018-10-08 15:08 | PN ---
PROGRESS NOTE: DATE OF SERVICE: 10/08/18 LOCATION: ICU Room 7. SUBJECTIVE: Overnight, the patient did well. No further seizure activity. She has tolerated the Keppra without difficulty. I did speak with the family who feels that she may be a little bit confused this morning but overall she seems to be doing well. She is up in the bed. She is happy and pleasant and answering questions. No new issues overnight. OBJECTIVE: Vital signs: Temperature of 96.9, heart rate is 64, respiratory rate of 21, O2 sat of 94%, blood pressure is 127/64. General: She is a well- developed, thin female, in no acute distress, sitting in her hospital bed. Her family is at the bedside. HEENT: She is normocephalic, atraumatic. Sclerae anicteric. Mucous membranes are moist. Oropharynx is clear. Nares are patent. Neck is supple. No thyromegaly. No carotid bruits. No meningismus. Chest: Clear to auscultation bilaterally. Cardiovascular: Regular rate and rhythm. Abdomen nontender. Extremities: No clubbing, cyanosis, or edema. Her skin is warm and dry. On neurologic exam, she is awake, alert. She is oriented to person, [facility], September 2018. Speech is fluent. There is no dysarthria. Repetition is intact. Recall is somewhat impaired. Pupils were equal, round, reactive to light and accommodation. Extraocular muscles were intact. Visual milan are full. There is no nystagmus or ptosis. Sensation is intact. Face appears symmetric. Hearing is intact bilaterally. Palate is symmetric, tongue is midline. Motor Exam: Spontaneously moving all extremities antigravity, 5/5 throughout. No drift is apparent. Sensation intact to light touch throughout. No focal deficits. Gait was not tested at this time. No resting tremors. No [id number]-lh-[id number] tremors. REPORTS: She had an electroencephalogram that I reviewed. I spoke with Dr. Mcqueen about the abnormal EEG. This was intermittent generalized change to the background rhythm with sharply contoured theta and at times sharp waves before the discharges that could last many seconds suggestive of epileptiform activity. At times there were changes noted more significantly in the left hemisphere and sharp waves with phase reversal. 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 Mesial temporal lobes are symmetric. There is no appreciable cortical dysplasia or heterotopia. Lab work this morning: Hemoglobin of 9.8, hematocrit of 29, platelet count is normal. Her basic metabolic panel: Sodium of 132 this morning, is improved. Chloride of 100, calcium of 8.3. ALLERGIES: NONSTEROIDALS, PENICILLIN, AMOXICILLIN, and RAMIPRIL. MEDICATIONS: Include: 1. Tylenol 650 mg p.o. q.4 hours. 2. Maalox. 3. Amlodipine 2.5 mg p.o. q.p.m. 4. Dymista 1 spray in the naris bilaterally b.i.d. 5. Diltiazem 120 mg p.o. daily. 6. Keppra 250 mg p.o. b.i.d. 7. Lorazepam 1 mg IV p.r.n. seizures. 8. Magnesium oxide. 9. Dulera. 10. Forteo. 11. Zofran. 12. Protonix. ASSESSMENT AND PLAN: Ms. Rangel is an 83-year-old female with a history of hypertension; chronic obstructive pulmonary disease; gastroesophageal reflux disease; history of prior atrial fibrillation years ago, none recently; hyperlipidemia; diastolic dysfunction; no prior seizure history or risk factors , presented to the hospital with several episodes concerning for seizure activity including one in the ER which was almost certainly a seizure. Had an abnormal EEG. Picture is complicated by the fact that she has hyponatremia. She has a history of drinking large volumes of water. She also had a gastrointestinal illness, nausea and vomiting. She had recently not been sleeping well. She recently had her teeth extracted, and I think that there was somewhat of a perfect storm. Although her EEG was markedly abnormal, I explained to the family that it is possible she could have had an abnormal EEG for years but never had the combination of issues that would lower her seizure threshold to the point of seizures. Given the fact that her EEG was so abnormal , I do think that ongoing treatment with Keppra is appropriate. Keppra can be associated with hyponatremia, although I have never seen this in my clinical practice. She does have a history of hyponatremia, so this is certainly something we will have to watch for. I started her on a low dose 250 mg p.o. b.i.d. and I explained to the family that she could have another seizure but I wanted to start a low dose to minimize the risk of side effects which we discussed. If she has another seizure, they will call 911 and bring her to the hospital. The plan is to remove her Goldstein; get her to the floor, step down, today; monitor her overnight and see how she does. If she is doing well tomorrow, I think she can go home with close followup in my clinic. I updated the family on the plan and they are in agreement. I will continue to follow her closely. [id number]/[facility] #: [id number] MTDD
[2018-10-08] MEDS: amLODIPine TAB* 5 MG PO SCH (17:17)
[2018-10-08] MEDS: TERIPARATIDE SUBCUT SCH (21:40)
[2018-10-09] MEDS: Heparin VIAL(*) 5000 UNITS/ML VIAL (FIVE THOUSAND) SUBCUT SCH (06:21)
[2018-10-09] MEDS: Mometasone/Formoter 200/5 MDI INH SCH (07:21)
[2018-10-09] MEDS: SPIRIVA Respimat* (tiotropium) 2.5 mcg/inh Inhaler INH SCH (07:22)
[2018-10-09 08:07] LABS: ABS Eosinophils 0.1 10^3/ul (0-0.6); ABS Lymphocytes 1.8 10^3/ul (1.0-4.8); ABS Monocytes 0.8 10^3/ul (0-0.8); ABS Neutrophils 5.8 10^3/ul (1.5-7.7); Hematocrit 33 % (35-47); Hemoglobin 11.3 g/dL (12.0-16.0); Lymphocyte % 21.1 %; Mean Corpuscular HGB Conc 34 g/dL (31-36); Mean Corpuscular Hemoglobin 29 pg (27-31); Mean Corpuscular Volume 85 fL (80-97); Mean Platelet Volume 6.4 fL (7.4-10.4); Platelet Count 471 10^3/uL (150-450); Red Cell Distribution Width 15 % (10-15); White Blood Count 8.6 10^3/uL (3.5-10.8)
[2018-10-09] MEDS: Pantoprazole TAB * 40 MG TAB PO SCH (08:16)
[2018-10-09] MEDS: Diltiazem CD CAP* 120 MG PO SCH (08:16)
[2018-10-09] MEDS: levETIRAcetam TAB* 500 MG PO SCH (08:16)
[2018-10-09] MEDS: Magnesium Oxide TAB* 400 MG PO SCH (08:16)
[2018-10-09 08:19] LABS: BUN/Creatinine Ratio 19.4 (8-20); Calcium 9.2 mg/dL (8.6-10.3); EGFR African American 101.5 (>60); EGFR Non-African American 83.9 (>60); Magnesium 1.8 mg/dL (1.9-2.7); Potassium 3.8 mmol/L (3.5-5.0)
[2018-10-09 08:23] VITALS: BP 153/65
[2018-10-09] MEDS: Azelastine/Fluticasone 137-50 MCG BTL (NF) BOTH NARES SCH (08:25)
[2018-10-09] MEDS ORDERED: Albuterol 2.5 MG/3 ML NEB.SOL* (0.083%) INH PRN (10:18)
--- NOTE | 2018-10-09 14:14 | DS ---
CC: Dr. Gt Romeo; Visiting Nurse Service DISCHARGE SUMMARY: DATE OF ADMISSION: 10/07/18 DATE OF DISCHARGE: 10/09/18 DISCHARGE DIAGNOSES: 1. Seizure disorder. 2. Hyponatremia. 3. Chronic obstructive pulmonary disease. 4. Aortic stenosis. 5. 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 6. Chronic obstructive pulmonary disease. 7. History of gastroparesis. 8. Hypertension. 9. Osteoporosis. 10. History of breast cancer. 11. Osteoarthritis. 12. Allergic rhinitis. 13. Chronic cough. 14. Mild anemia. 15. 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 16. Nausea and vomiting, resolved. HISTORY: Josette Rangel is an 83-year-old woman admitted with nausea and vomiting , then having a witnessed seizure after admission. Please see the dictated admission note for details of the present illness, past medical history, family history, social and personal history, review of systems, and physical examination. LABORATORY DATA: CBC: WBC 10.6, H and H 10.6/32, MCV 85, PLT 398,000. CBC on 10/08/18: WBC 7.9, H and H 9.8/29, MCV 85, PLT 355,000. CBC on 10/09/18: WBC 8.6, H and H 11.3/33, MCV 85, PLT 471,000. INR is 0.96. PTT 31.7. Chemistries on 10/07/18 at 0140: Sodium 122, potassium 4.2, chloride 90, CO2 of 21, BUN and creatinine 15/0.73, glucose 140, magnesium 1.8, alk phos 173, lactic acid 1.3. Repeat chemistries on 10/07/18: Sodium 124, potassium specimen hemolyzed so not checked, chloride 91, CO2 of 14, anion gap 19, BUN and creatinine 13/0.79, glucose 168, calcium 8.6 at 0500. On 10/07/18 at 10:05 a.m.: Sodium 129, potassium 4.0, chloride 96, CO2 of 24, BUN and creatinine 11/ 0.65, glucose 110, calcium 8.4. Chemistries on 10/07/18 at 1609: Sodium 130, potassium 3.8, chloride 98, CO2 of 25, BUN and creatinine 10/0.77, glucose 108. BMP 10/08/18 at 05:03 a.m.: Sodium 132, potassium 3.9, chloride 100, CO2 of 24, BUN and creatinine 14/0.70, glucose 99, calcium 8.3, phosphorous 3.5, magnesium 1.9. Chemistries on 10/09/18: Sodium 133, potassium 3.8, chloride 99 , CO2 of 27, BUN and creatinine 13/0.67, magnesium 1.8. Urinalysis on 10/07/18 : Colorless, clear, specific gravity 1.004, blood 2+. Urine sodium osmolality at 03:27 a.m. on 10/07/18, urine sodium 88, osmolality 259; at 10:34, sodium 82 , osmolality 278. Troponin was 0.01 on admission. Lipase was normal on admission. MRSA screen was negative. IMAGING: Brain CT on 10/07/18 showed no acute intracranial abnormality. MRI of the brain on 10/07/18 showed multiple scattered foci of elevated T2/ FLAIR signal within the periventricular and subcortical white matter, nonenhancing and a chronic appearing lacunar infarct of the right inferior cerebellum. It was felt that the scattered foci could be seen in association with migraine, sequelae of previous infection or inflammation, chronic small vessel ischemia, demyelinating disease. EEG report 10/07/[address] Mcqueen, it was felt to be abnormal with intermittent generalized change to the background rhythm with sharply contoured theta and other times with sharp waves before the discharges that could last many seconds suggestive for epileptiform activity. At times, there were changes noted more significantly in the left hemisphere with sharp waves with phase reversal. CONSULTATIONS: ICU 10/07/18, Dr. García felt that she had seizures in the setting of hyponatremia in the setting of nausea, vomiting, dehydration. Recommended monitoring serum sodium every 8 hours, recheck urine sodium and osmolality, hold IV fluids, use benzodiazepines as needed for seizures. Repeat consultation in ICU on 10/08/18, the patient had been given 3% normal saline, was stopped after 200 cc as serum sodium went up. Neurological consultation, Dr. Romeo, 10/07/18. Dr. Romeo felt that the patient had generalized tonic- clonic seizure. He felt that she might have had a seizure earlier in the evening as well when she had awoken her with some gurgling sounds and was incontinent of urine. He noted that the patient had been taking her 's gabapentin for about 5 days prior to her recent admission, withdrawal from gabapentin could have lowered seizure threshhold. He felt that the previous possible syncopal episode could have been a seizure as well with some mild shaking in her left hand. He recommended MRI, EEG and if abnormal treat for seizures. He recommended Keppra because of the abnormal EEG (see below). He recommended correcting the low sodium. Follow up consult with Dr. Romeo 10/08/18 , had started on Keppra 250 twice a day. He also felt that possible gastrointestinal illness, nausea, vomiting, teeth extraction, not sleeping well could have contributed to the seizure. He noted that the Keppra can be associated with hyponatremia, although he had never seen that occur. He felt the Keppra was the best antiepileptic drug for her. HOSPITAL COURSE: The patient was initially in the emergency room. In the emergency room, the patient was given Zofran, DuoNeb, Pepcid, Tessalon, and lactated Ringer's. She was observed to have a grand mal tonic-clonic seizure with tongue bitting. 2.5 mg Versed was ordered, but she had spontaneous resolution prior to administration of the Versed. She was administered 3% hypertonic saline for the hyponatremia. The patient was admitted by hospitalist , Dr. West. She had improved with treatment in the emergency room with regard to the nausea. She was placed on a regular diet. She was in the ICU. Urine studies were ordered. She got 1 dose of Tylenol with codeine for the cough to let her sleep. She was placed on heparin subcutaneous prophylaxis. She was a full code. Her sodium came up. She had no further seizures. She was seen in neurological consultation by Dr. Romeo, see above. She was somewhat confused initially. This improved throughout the course of her hospitalization although family felt she was not back to baseline at the time of discharge. When she woke up on 10/08/18, she thought she was in [place]. Her Goldstein catheter was removed on 10/08/18 and she moved out of the ICU. She was started on Keppra because of her abnormal EEG. At that time, she was able to walk. She was able to eat, was moving her bowels. She underwent PT evaluation. Physical therapist saw her on 10/08/18. She felt that she was independent in mobility, walked 50 feet. She felt that she could use more strengthening education, gait training, mobility training, balance training. She thought that outpatient PT for balance would be helpful. At the time of discharge on 10/09/18, she is feeling somewhat better, although her family thinks she might be still slightly confused. Vital signs, blood pressure 153/65, pulse 87, respirations 18, temperature 97.1 , O2 sat 96%. Her mouth and pharynx showed moist mucous membranes. Her chest is clear. Heart is regular with a grade 2/6 systolic murmur. Abdomen is nontender. Extremities show no calf tenderness or edema. Labs were as noted above. She is being discharged on Keppra. Her hyponatremia has improved. Her cough was discussed. She had seen an tunnel elastic operator lockstitch who said she was allergic to everything. It is not clear whether allergy shots were recommended. I will look at her chart in my office to see if I can track this again and this might be considered. In the meantime, we will try a nebulizer. DISCHARGE MEDICATIONS: At the time of discharge, her discharge medications are as follows: 1. Diltiazem 120 mg daily. 2. Amlodipine 2.5 mg daily. 3. Omeprazole 20 mg twice a day. 4. Incruse Ellipta 1 inhalation daily. 5. Magnesium 400 mg daily. 6. Xyzal 5 mg daily. 7. Avapro 150 mg daily. 8. Vitamin D 2000 units daily. 9. Symbicort 160/4.5 two puffs twice a day. 10. QVAR 80 mcg MDI 2 puffs twice a day as needed for worsening COPD. 11. Dymista 1 spray both nostrils twice a day. 12. Vitamin C 500 mg daily. 13. Keppra (levetiracetam) 250 mg twice a day. 14. Nebulizer with albuterol 2.5 mg in 3 mL 4 times a day as needed or albuterol HFA inhaler 2 puffs q.4 h. p.r.n. FOLLOWUP: Followup will be with myself in 4 to 7 days, Dr. Romeo in 1 month, and visiting nurse service will be seeing her. BMP, cortisol, TSH should be drawn on 10/13/18 by the visiting nurse service with appointment with me . DISCHARGE CONDITION: She is being discharged home in improved condition. [id number]/[facility] #: [id number] MTDD
== END 2018-10-09 12:30 | disposition home or self-care (01) | DRG 101 ==
LOC: ED 01:13 → INTOOBSV 03:40 → OBSVTOIN 03:40 → MED 03:40 → UNDOADMOB 03:40 → MED 05:19 → ICU 05:19 → MED 10-08 12:36
PROVIDERS: ADMIT Internal Medicine; ATTEND Internal Medicine Geriatric Medicine
DX: G40.409 Other generalized epilepsy and epileptic syndromes, not intractable, without status epilepticus (principal); E87.1 Hypo-osmolality and hyponatremia; E86.0 Dehydration; J44.9 Chronic obstructive pulmonary disease, unspecified; I35.0 Nonrheumatic aortic (valve) stenosis; I10 Essential (primary) hypertension; M81.0 Age-related osteoporosis without current pathological fracture; J30.9 Allergic rhinitis, unspecified; R05 Cough; I48.0 Paroxysmal atrial fibrillation; D64.9 Anemia, unspecified; K21.9 Gastro-esophageal reflux disease without esophagitis; D25.9 Leiomyoma of uterus, unspecified; Z96.643 Presence of artificial hip joint, bilateral; Z96.653 Presence of artificial knee joint, bilateral; Z86.73 Personal history of transient ischemic attack (TIA), and cerebral infarction without residual deficits; Z79.51 Long term (current) use of inhaled steroids; Z79.899 Other long term (current) drug therapy; Z88.6 Allergy status to analgesic agent; Z88.1 Allergy status to other antibiotic agents; Z88.8 Allergy status to other drugs, medicaments and biological substances; Z82.5 Family history of asthma and other chronic lower respiratory diseases; Z80.42 Family history of malignant neoplasm of prostate; Z87.891 Personal history of nicotine dependence; Z85.3 Personal history of malignant neoplasm of breast
CPT/HCPCS: 36415; 70450; 70553; 80048; 80076; 81003; 81015; 83605; 83690; 83735; 83935; 84100; 84300; 84484; 85025; 85610; 85730; 87641; 94640; 95819; 99285; A9270-GY; A9579; G8978-GP-CJ; G8979-GP-CI; J1644; J2060; J2250; J2405; J3535

== ENCOUNTER 2023-10-30 15:23 | Inpatient (IN) ==
[2023-10-30 16:07] LABS: ABS Basophils 0.1 10^3/uL (0.0-0.1); ABS Monocytes 0.7 10^3/uL (0.0-0.9); ABS Neutrophils 7.7 10^3/uL (1.5-7.6); ABS Nucleated RBC 0.01 10^3/ul; Hemoglobin 8.1 g/dL (11.5-14.3); Lymphocyte % 10.8 %; Mean Corpuscular Hemoglobin 30.3 pg (27-33); Mean Corpuscular Hgb Conc 32.4 g/dL (31-36); Mean Corpuscular Volume 93.4 fL (80-97); Mean Platelet Volume 7.1 fL (7.5-11.2); Nucleated Red Blood Cells % 0.1 %/100WBC (0.0-0.8); Platelet Count 379 10^3/uL (150-450); Red Blood Count 2.68 10^6/uL (3.63-4.92); Red Cell Distribution Width 14.8 % (12-17); White Blood Count 9.5 10^3/uL (3.8-11.8)
[2023-10-30 16:18] LABS: INR 0.96 (0.85-1.14)
[2023-10-30 16:39] LABS: ALT 17 U/L (7-52); AST 17 U/L (13-39); Albumin 3.6 g/dL (3.2-5.2); Albumin/Globulin Ratio 1.8 (1-3); Alkaline Phosphatase 153 U/L (35-149); Anion Gap 9 mmol/L (2-16); Blood Urea Nitrogen 46 mg/dL (6-24); C Reactive Protein 1.62 mg/L (<8.01); CO2 Carbon Dioxide 23 mmol/L (22-32); Calcium 8.3 mg/dL (8.6-10.3); Chloride 106 mmol/L (101-111); Creatinine, Serum 1.33 mg/dL (0.51-0.95); Glucose 151 mg/dL (70-100); Magnesium 2.2 mg/dL (1.9-2.7); Phosphorus 4.4 mg/dL (2.5-5.0); Potassium 4.2 mmol/L (3.5-5.0); Sodium 138 mmol/L (135-145); Total Bilirubin 0.3 mg/dL (0.2-1.0); Total Protein 5.6 g/dL (6.4-8.9); eGFR CKD-EPI 38.2 (>60)
[2023-10-30] MEDS: Iodixanol (CONTRAST) 320 MG/ML 100 ML SDV IV ONE (17:25)
[2023-10-30] MEDS: NS 0.9% 1000 ml BAG 1,000 ML IV ONE (17:36)
[2023-10-30] MEDS: Pantoprazole VIAL 40 MG VIAL IV ONE (18:16)
[2023-10-30 18:29] LABS: % Iron Saturation 5 % (15-55); .Transferrin 290 mg/dL (203-362); Iron < 20 ug/dL (50-212); Total Iron Binding Capacity 406 mcg/dL (250-450); Unsaturated Iron Binding 386 ug/dL
[2023-10-30 18:47] LABS: Ferritin 13.6 ng/mL (11-307)
[2023-10-30 20:04] LABS: Urine Appearance Clear; Urine Bilirubin Negative (Negative); Urine Blood Negative (Negative); Urine Color Light-Yellow; Urine Glucose Negative (Negative); Urine Ketones Negative (Negative); Urine Nitrite Negative (Negative); Urine Protein Trace (Negative); Urine Urobilinogen Negative (Negative); Urine pH 5.5 (5.0-8.0)
[2023-10-30] MEDS ORDERED: Levalbuterol HFA INHALER MDI INH PRN (21:16)
[2023-10-30] MEDS: Mometasone/Formoter 100/5 MDI INH SCH (23:35)
[2023-10-31 00:04] LABS: ABS Lymphocytes 1.1 10^3/uL (1.0-4.8); ABS Neutrophils 5.3 10^3/uL (1.5-7.6); Eosinophil % 0.1 %; Hematocrit 23.8 % (35-45); Hemoglobin 7.7 g/dL (11.5-14.3); Lymphocyte % 14.8 %; Mean Corpuscular Hemoglobin 29.6 pg (27-33); Mean Corpuscular Hgb Conc 32.5 g/dL (31-36); Mean Corpuscular Volume 91.2 fL (80-97); Mean Platelet Volume 7.2 fL (7.5-11.2); Nucleated Red Blood Cells % 0.1 %/100WBC (0.0-0.8); Platelet Count 309 10^3/uL (150-450); Red Blood Count 2.61 10^6/uL (3.63-4.92); White Blood Count 7.5 10^3/uL (3.8-11.8)
[2023-10-31 03:13] LABS: GGTP 11 U/L (9-64.0)
[2023-10-31] MEDS ORDERED: Sulfur Hexaflouride MICROSPHR 25 MG VIAL IV PRN (05:02)
[2023-10-31 06:28] LABS: Hematocrit 25.3 % (35-45); Hemoglobin 8.7 g/dL (11.5-14.3); Mean Corpuscular Hemoglobin 31.1 pg (27-33); Mean Corpuscular Hgb Conc 34.6 g/dL (31-36); Mean Corpuscular Volume 90.1 fL (80-97); Mean Platelet Volume 6.7 fL (7.5-11.2); Platelet Count 340 10^3/uL (150-450); Red Blood Count 2.81 10^6/uL (3.63-4.92); Red Cell Distribution Width 15.4 % (12-17)
[2023-10-31 07:18] LABS: Calcium 8.2 mg/dL (8.6-10.3); Creatinine, Serum 1.01 mg/dL (0.51-0.95); Potassium 4.1 mmol/L (3.5-5.0); eGFR CKD-EPI 53.2 (>60)
[2023-10-31] MEDS: Ferric Gluconate IV 250 MG in NS 0.9% 250 ml 200 ML IVPB SCH (09:43)
[2023-10-31] MEDS: Pantoprazole VIAL 40 MG VIAL IV SCH (09:43)
[2023-11-01 06:36] LABS: INR 1.04 (0.85-1.14)
[2023-11-01 06:40] LABS: ABS Monocytes 1.2 10^3/uL (0.0-0.9); ABS Neutrophils 6.6 10^3/uL (1.5-7.6); ABS Nucleated RBC 0.01 10^3/ul; Hematocrit 24.8 % (35-45); Hemoglobin 8.6 g/dL (11.5-14.3); Lymphocyte % 11.3 %; Mean Corpuscular Hemoglobin 31.2 pg (27-33); Mean Corpuscular Hgb Conc 34.7 g/dL (31-36); Mean Corpuscular Volume 90.1 fL (80-97); Nucleated Red Blood Cells % 0.1 %/100WBC (0.0-0.8); Platelet Count 355 10^3/uL (150-450); Red Blood Count 2.75 10^6/uL (3.63-4.92); Red Cell Distribution Width 14.6 % (12-17); White Blood Count 8.8 10^3/uL (3.8-11.8)
[2023-11-01 06:57] LABS: Albumin 3.2 g/dL (3.2-5.2); Albumin/Globulin Ratio 1.8 (1-3); Calcium 8.5 mg/dL (8.6-10.3); Creatinine, Serum 0.81 mg/dL (0.51-0.95); Globulin 1.8 g/dL (2-4); Magnesium 1.7 mg/dL (1.9-2.7); Potassium 4.2 mmol/L (3.5-5.0); Total Bilirubin 0.5 mg/dL (0.2-1.0); eGFR CKD-EPI 69.3 (>60)
[2023-11-01] MEDS: Magnesium Sulfate 2 gm BAG 2 GM/50 ML BAG IVPB ONE (10:05)
[2023-11-01] MEDS: Magnesium Sulfate IV 1GM/100ML 1 GM/100 ML BAG IV ONE (12:10)
[2023-11-01] MEDS ORDERED: Clindamycin 600 MG/NS BAG(*) 600 MG/50 ML BAG ONE (13:56)
[2023-11-01] MEDS ORDERED: Lidocaine 2% PF 5 ML VIAL ONE (14:54)
[2023-11-01] MEDS ORDERED: Propofol 10 MG/ML 20 ML BTL ONE (14:54)
[2023-11-01] MEDS: Clindamycin 600 MG/D5W BAG 600 MG/50 ML BAG IV ONE (17:36)
[2023-11-02 09:32] VITALS: BP 135/59
[2023-11-02 09:36] LABS: ABS Neutrophils 5.5 10^3/uL (1.5-7.6); ABS Nucleated RBC 0.02 10^3/ul; Eosinophil % 0.1 %; Hematocrit 26.8 % (35-45); Hemoglobin 9.1 g/dL (11.5-14.3); Mean Corpuscular Hemoglobin 30.9 pg (27-33); Mean Corpuscular Hgb Conc 33.8 g/dL (31-36); Mean Corpuscular Volume 91.3 fL (80-97); Mean Platelet Volume 7.2 fL (7.5-11.2); Nucleated Red Blood Cells % 0.2 %/100WBC (0.0-0.8); Platelet Count 401 10^3/uL (150-450); Red Blood Count 2.93 10^6/uL (3.63-4.92); White Blood Count 7.4 10^3/uL (3.8-11.8)
[2023-11-02 10:12] LABS: Creatinine, Serum 0.9 mg/dL (0.51-0.95); Potassium 4.7 mmol/L (3.5-5.0); eGFR CKD-EPI 61.1 (>60)
[2023-11-02 10:39] LABS: Magnesium 2.3 mg/dL (1.9-2.7)
== END 2023-11-02 13:40 | disposition home or self-care (01) | DRG 378 ==
LOC: ED 15:23 → EDHOLD 15:23 → SUATTDRO 20:07 → MED 21:26
PROVIDERS: ADMIT Internal Medicine; ATTEND Student in an Organized Health Care Education/Training Program
PROC: O.GIEGD (2023-11-01 14:35)

== ENCOUNTER 2024-02-15 16:41 | Inpatient (IN) ==
[2024-02-15] MEDS ORDERED: Albuterol/Ipratropium NEB.SOL (2.5/0.5 MG) 3 ML NEB.SOLN ONE (17:20)
[2024-02-15] MEDS: Albuterol/Ipratropium NEB.SOL (2.5/0.5 MG) 3 ML NEB.SOLN INH SCH (17:24)
[2024-02-15] MEDS ORDERED: Albuterol/Ipratropium NEB.SOL (2.5/0.5 MG) 3 ML NEB.SOLN INH SCH (18:00)
[2024-02-15 18:35] LABS: ABS Lymphocytes 0.3 10^3/uL (1.0-4.8); ABS Monocytes 0.5 10^3/uL (0.0-0.9); ABS Neutrophils 7.4 10^3/uL (1.5-7.6); Hematocrit 37.6 % (35-45); Hemoglobin 12.4 g/dL (11.5-14.3); Lymphocyte % 3.5 %; Mean Corpuscular Hemoglobin 29.8 pg (27-33); Mean Corpuscular Volume 90.3 fL (80-97); Mean Platelet Volume 6.9 fL (7.5-11.2); Platelet Count 278 10^3/uL (150-450); Red Blood Count 4.16 10^6/uL (3.63-4.92); Red Cell Distribution Width 13.8 % (12-17); White Blood Count 8.2 10^3/uL (3.8-11.8)
[2024-02-15 19:08] LABS: Albumin 3.9 g/dL (3.5-5.7); Albumin/Globulin Ratio 1.7 (1-3); Calcium 9.2 mg/dL (8.6-10.3); Creatinine, Serum 1.28 mg/dL (0.51-0.95); Globulin 2.3 g/dL (2-4); Potassium 4.6 mmol/L (3.5-5.0); Total Bilirubin 0.5 mg/dL (0.2-1.0); Total Protein 6.2 g/dL (6.4-8.9)
[2024-02-15 20:10] LABS: High Sensitivity Troponin 1 Hr 11 pg/mL (<15)
[2024-02-15] MEDS: Iodixanol 320 (CONTRAST) 100 ML SDV IV ONE (20:16)
[2024-02-15] MEDS ORDERED: Albuterol/Ipratropium NEB.SOL (2.5/0.5 MG) 3 ML NEB.SOLN INH PRN (21:47)
[2024-02-15] MEDS: Albuterol/Ipratropium NEB.SOL (2.5/0.5 MG) 3 ML NEB.SOLN INH PRN (22:24)
[2024-02-15] MEDS ORDERED: Sodium Chloride(INHALANT) 7% 4 ML NEB.SOLN INH SCH (23:00)
[2024-02-15] MEDS: cefTRIAXone 1 gm/50 mL D5W 1 GM/50 ML BAG IV SCH (23:25)
[2024-02-15] MEDS: methylPREDNISolone SOD SUCC 40 mg/ml 1 ml VIAL IV SCH (23:25)
[2024-02-15] MEDS: Mometasone/Formoter 100/5 MDI INH SCH (23:59)
[2024-02-16] MEDS: guaiFENesin/CODIENE 100mg/10mg 5 ML UDC PO PRN (00:46)
[2024-02-16] MEDS: Sodium Chloride(INHALANT) 7% 4 ML NEB.SOLN INH SCH (02:50)
[2024-02-16 07:24] LABS: ABS Lymphocytes 0.5 10^3/uL (1.0-4.8); ABS Monocytes 0.3 10^3/uL (0.0-0.9); ABS Neutrophils 7.8 10^3/uL (1.5-7.6); ABS Nucleated RBC 0.01 10^3/ul; Hematocrit 36.4 % (35-45); Hemoglobin 12.1 g/dL (11.5-14.3); Lymphocyte % 5.7 %; Mean Corpuscular Hemoglobin 30.1 pg (27-33); Mean Corpuscular Hgb Conc 33.1 g/dL (31-36); Mean Corpuscular Volume 90.7 fL (80-97); Nucleated Red Blood Cells % 0.1 %/100WBC (0.0-0.8); Platelet Count 289 10^3/uL (150-450); Red Blood Count 4.01 10^6/uL (3.63-4.92); Red Cell Distribution Width 14.3 % (12-17); White Blood Count 8.6 10^3/uL (3.8-11.8)
[2024-02-16 07:36] LABS: Albumin 3.7 g/dL (3.5-5.7); Albumin/Globulin Ratio 1.6 (1-3); Calcium 8.8 mg/dL (8.6-10.3); Creatinine, Serum 1.1 mg/dL (0.51-0.95); Globulin 2.3 g/dL (2-4); Potassium 5.2 mmol/L (3.5-5.0); Total Bilirubin 0.4 mg/dL (0.2-1.0)
[2024-02-16] MEDS: Albuterol/Ipratropium NEB.SOL (2.5/0.5 MG) 3 ML NEB.SOLN INH SCH ×2 (07:42→20:02)
[2024-02-16] MEDS: NF: Multivitamins/Minera Areds(NF) CAP PO SCH (08:11)
[2024-02-16 13:49] LABS: ABS Basophils 0.1 10^3/uL (0.0-0.1); ABS Lymphocytes 0.4 10^3/uL (1.0-4.8); ABS Monocytes 0.4 10^3/uL (0.0-0.9); ABS Neutrophils 8.7 10^3/uL (1.5-7.6); Hematocrit 37.6 % (35-45); Hemoglobin 12.2 g/dL (11.5-14.3); Lymphocyte % 4.1 %; Mean Corpuscular Hemoglobin 29.6 pg (27-33); Mean Corpuscular Hgb Conc 32.4 g/dL (31-36); Mean Corpuscular Volume 91.5 fL (80-97); Mean Platelet Volume 6.7 fL (7.5-11.2); Platelet Count 294 10^3/uL (150-450); Red Blood Count 4.12 10^6/uL (3.63-4.92); Red Cell Distribution Width 14.2 % (12-17); White Blood Count 9.5 10^3/uL (3.8-11.8)
[2024-02-16 14:07] LABS: Activated Partial Thrombo Time 26.8 seconds (26.0-38.0); INR 0.92 (0.85-1.14)
[2024-02-16 14:11] LABS: Creatinine, Serum 1.08 mg/dL (0.51-0.95); eGFR CKD-EPI 49.1 (>60)
[2024-02-16] MEDS: Heparin 5000 UNITS/ML 1 mL VIAL SUBCUT SCH (14:12)
[2024-02-16] MEDS: Cholecalciferol (VIT D3) 1,000 unit TAB PO SCH (21:01)
[2024-02-17 06:52] LABS: Hematocrit 35.1 % (35-45); Hemoglobin 11.5 g/dL (11.5-14.3); Mean Corpuscular Hemoglobin 29.6 pg (27-33); Mean Corpuscular Hgb Conc 32.8 g/dL (31-36); Mean Corpuscular Volume 90.5 fL (80-97); Platelet Count 297 10^3/uL (150-450); Red Blood Count 3.88 10^6/uL (3.63-4.92); Red Cell Distribution Width 14.2 % (12-17); White Blood Count 14.6 10^3/uL (3.8-11.8)
[2024-02-17 07:18] LABS: Albumin 3.2 g/dL (3.5-5.7); Albumin/Globulin Ratio 1.5 (1-3); Calcium 8.8 mg/dL (8.6-10.3); Creatinine, Serum 0.92 mg/dL (0.51-0.95); Globulin 2.2 g/dL (2-4); Magnesium 1.8 mg/dL (1.9-2.7); Potassium 4.6 mmol/L (3.5-5.0); Total Bilirubin 0.4 mg/dL (0.2-1.0); Total Protein 5.4 g/dL (6.4-8.9); eGFR CKD-EPI 59.5 (>60)
[2024-02-17 08:07] LABS: ABS Lymphocytes 1.2 10^3/uL (1.0-4.8); ABS Monocytes 1.7 10^3/uL (0.0-0.9); ABS Neutrophils 11.7 10^3/uL (1.5-7.6); Eosinophil % 0.1 %; Lymphocyte % 8.5 %
[2024-02-17] MEDS: Albuterol/Ipratropium NEB.SOL (2.5/0.5 MG) 3 ML NEB.SOLN INH SCH (18:57)
[2024-02-18 06:27] LABS: Hematocrit 34.9 % (35-45); Hemoglobin 11.7 g/dL (11.5-14.3); Mean Corpuscular Hemoglobin 30.3 pg (27-33); Mean Corpuscular Hgb Conc 33.5 g/dL (31-36); Mean Corpuscular Volume 90.5 fL (80-97); Mean Platelet Volume 7.1 fL (7.5-11.2); Platelet Count 291 10^3/uL (150-450); Red Blood Count 3.86 10^6/uL (3.63-4.92); Red Cell Distribution Width 14.1 % (12-17); White Blood Count 10.7 10^3/uL (3.8-11.8)
[2024-02-18 06:41] LABS: Calcium 8.9 mg/dL (8.6-10.3); Creatinine, Serum 0.98 mg/dL (0.51-0.95); Magnesium 1.9 mg/dL (1.9-2.7); Potassium 4.5 mmol/L (3.5-5.0); eGFR CKD-EPI 55.2 (>60)
[2024-02-18 07:26] LABS: ABS Basophils 0.1 10^3/uL (0.0-0.1); ABS Monocytes 1.1 10^3/uL (0.0-0.9); ABS Neutrophils 8.5 10^3/uL (1.5-7.6); ABS Nucleated RBC 0.01 10^3/ul; Eosinophil % 0.1 %; Lymphocyte % 9.3 %; Nucleated Red Blood Cells % 0.1 %/100WBC (0.0-0.8)
[2024-02-18] MEDS: CMC:FLUTICAS/UMECLI/VILANT 100-62.5-25 MDI (NF) INH SCH (21:50)
[2024-02-19 06:53] LABS: Hematocrit 36.3 % (35-45); Hemoglobin 11.9 g/dL (11.5-14.3); Mean Corpuscular Hemoglobin 29.4 pg (27-33); Mean Corpuscular Hgb Conc 32.7 g/dL (31-36); Mean Corpuscular Volume 89.8 fL (80-97); Mean Platelet Volume 7.2 fL (7.5-11.2); Platelet Count 343 10^3/uL (150-450); Red Blood Count 4.04 10^6/uL (3.63-4.92); Red Cell Distribution Width 14.2 % (12-17); White Blood Count 9.7 10^3/uL (3.8-11.8)
[2024-02-19 07:19] LABS: Calcium 8.9 mg/dL (8.6-10.3); Creatinine, Serum 0.99 mg/dL (0.51-0.95); Potassium 4.7 mmol/L (3.5-5.0); eGFR CKD-EPI 54.5 (>60)
[2024-02-19 08:27] LABS: ABS Nucleated RBC 0.01 10^3/ul; Nucleated Red Blood Cells % 0.1 %/100WBC (0.0-0.8); RBC Morphology Normal (Normal)
[2024-02-19 08:28] LABS: ABS Lymphocytes 2.3 10^3/ul (1.0-4.8); ABS Monocytes 0.7 10^3/ul (0.0-0.9); ABS Neutrophils 6.7 10^3/ul (1.5-7.6)
[2024-02-19 13:29] VITALS: BP 126/55
== END 2024-02-19 15:40 | disposition home or self-care (01) | DRG 193 ==
LOC: EDHOLD 16:41 → ED 16:41 → SUATTDRO 20:50 → MED 21:26
PROVIDERS: ADMIT Hospitalist; ATTEND Student in an Organized Health Care Education/Training Program